=== PATIENT | female | born 1945 | race Caucasian/White ===

== ENCOUNTER → 2017-12-04 12:14 | Outpatient (CLI) | payer MEDICARE, SELFPAY ==
--- NOTE | 2017-12-04 12:31 | RAD_ITS ---
STUDY: X-RAY - CERVICAL SPINE REASON FOR EXAM: Female, 72 years old. Neck and shoulder pain TECHNIQUE: 5 view(s) of the cervical spine were obtained. COMPARISON: None FINDINGS: There is normal alignment and curvature of the cervical spine with disc space narrowing at C3-C4, C4-C5, C5-C6 and C6-C7. There are no acute fractures. The intervertebral foramina are patent bilaterally except for some narrowing at the left C5-C6 level RAD/Cerv Spine 4 or 5 Views IMPRESSION: Multilevel intervertebral osteochondrosis with uncinate spurs narrowing the left intervertebral foramen at C5-C6 Electronically Signed: Cheng Akins, at 3:34 EDT Tel , Service support ,
--- NOTE | 2017-12-04 12:37 | RAD_ITS ---
STUDY: X-RAY CHEST REASON FOR EXAM: Female, 72 years old. Asthma TECHNIQUE: Frontal and lateral views of the chest COMPARISON: 07/03/2016 FINDINGS: The lungs are clear. There are no pleural effusions. There is no pneumothorax. The heart is normal in size. The visualized osseous structures are within normal limits. RAD/Chest PA and Lateral IMPRESSION: No acute thoracic pathology. Electronically Signed: Santiago Escobar, at 22:36 EDT Tel , Service support ,
== END ==
PROVIDERS: Family Provider Internal Medicine; PCP Internal Medicine; Visit Provider Internal Medicine
DX: M42.12 Adult osteochondrosis of spine, cervical region (principal); J45.40 Moderate persistent asthma, uncomplicated
CPT/HCPCS: 71046; 72050

== ENCOUNTER → 2017-12-10 07:00 | Outpatient (CLI) | payer MEDICARE, SELFPAY ==
--- NOTE | 2017-12-10 07:02 | BI_ITS ---
MAMMOGRAPHY - BILATERAL SCREENING REASON FOR EXAM: Female, 72 years old. Routine annual screening examination. PERTINENT HISTORY: Sister with breast cancer. Aunt with breast cancer. TECHNIQUE: Digital bilateral breast leida (3D mammographic acquisition) in the CC and MLO projections. 2-D mediolateral oblique (MLO) and craniocaudad (CC) views of both breasts were obtained. CAD: Full Field Digital Mammography with Computer Added Detection was performed. COMPARISON: Comparison is made with prior study dated August 01, 2016. FINDINGS: Breast Composition: There are scattered areas of fibroglandular density. There are no dominant masses or suspicious calcifications. Stable appearance of the benign appearing bilateral axillary lymph nodes. No other significant abnormalities are identified. There has been no significant change since the prior study. BI/SCREENING MAMM (CAD), BILAT IMPRESSION: Stable bilateral screening mammogram. Yearly follow-up mammogram recommended. (A) ASSESSMENT CATEGORY: BIRADS Category 2: Benign. A letter regarding these results will be sent to the patient by the facility within 30 days. Approximately 10% of breast cancers are not detected by mammography. A normal mammogram should not delay biopsy of a clinically suspicious abnormality. [id number] Electronically Signed: Ryan Correia MD at 9:20 EDT Tel [phone], Service support ,
== END ==
PROVIDERS: Family Provider Internal Medicine; PCP Internal Medicine; Visit Provider Internal Medicine
DX: Z12.31 Encounter for screening mammogram for malignant neoplasm of breast (principal)
CPT/HCPCS: 77063; 77067

== ENCOUNTER → 2018-02-06 09:09 | Outpatient (CLI) | payer MEDICARE, SELFPAY | PROVIDERS: Family Provider Internal Medicine; PCP Internal Medicine; Visit Provider Internal Medicine | DX: I49.3 Ventricular premature depolarization (principal) | CPT/HCPCS: 93225; 93226 ==

== ENCOUNTER → 2018-08-05 10:05 | Outpatient (CLI) | payer MEDICARE, SELFPAY ==
--- NOTE | 2018-08-05 10:11 | BD_ITS ---
STUDY: DUAL ENERGY X-RAY ABSORPTIOMETRY / DXA REASON FOR EXAM: Female, 72 years old. Early menopause. Loss of height. TECHNIQUE: Bone Mineral Density (BMD) measurements of lumbar spine and bilateral hips were obtained. COMPARISON: Comparison is made with prior study dated August 01, 2016. FINDINGS: Lumbar Spine (L1-L4): g/cm2 (1.010) / T-score (-1.3) / Z-score (0.4) Findings are suggestive of osteopenia with a low fracture risk. Left Femur Total: g/cm2 (0.881) / T-score (-1.0) / Z-score (0.7) Left Femoral Neck: g/cm2 (0.735) / T-score (-2.2) / Z-score (-0.3) Right Femur Total: g/cm2 (0.881) / T-score (-1.0) / Z-score (0.6) Right Femoral Neck: g/cm2 (0.858) / T-score (-1.3) / Z-score (0.6) The T-Scores on the most recent prior examination were: Lumbar Spine (L1-L4): There has been worsening of bone density since the previous examination. Left Femur Total: which represents a worsening of 4.9%. Right Femur Total: which represents a worsening of 6%. BD/Dexa Bone Density Study IMPRESSION: The patient is considered osteopenic as outlined below according to World Wood Organization (WHO) criteria with a moderate fracture risk. There has been worsening of bone density since the previous examination. Reference Information: The T-score is the number of standard deviations above or below the standard which is normal for young adults at their peak bone mineral density. The World Health Organization (WHO) interprets the T-scores as follows: Above -1 Normal bone density Between -1 and -2.5 Osteopenia Equal to / or below -2.5 Osteoporosis As a practical clinical guideline, osteopenia may be graded as follows: Mild -1 through -1.5 Moderate -1.6 through -2.0 Severe -2.1 through -2.4 The Z-score is the number of standard deviations above or below age-matched controls. A Z-score of less than -1.5 would be considered abnormal. References: 1. NIH Osteoporosis and Related Bone Diseases http://www.osteo.org 2. International Society for Clinical Densitometry http://www.iscd.org 3. National Osteoporosis Foundation http://www.nof.org Electronically Signed: Ryan Correia, at 10:22 EST , Service support ,
== END ==
PROVIDERS: Family Provider Internal Medicine; PCP Internal Medicine; Referring Provider Internal Medicine; Visit Provider Internal Medicine
DX: Z78.0 Asymptomatic menopausal state (principal)
CPT/HCPCS: 77080

== ENCOUNTER → 2018-09-12 05:59 | Outpatient (CLI) | payer MEDICARE, SELFPAY ==
--- NOTE | 2018-09-12 06:07 | ECHOCS_ITS ---
Reason For Study: Precordial Pain Procedure This was a 2D Doppler, Color Flow transthoracic echocardiogram. Exam performed in department. Left Ventricle Normal LV size. Sigmoid septum. Left ventricular systolic function is normal. The estimated ejection fraction is 65 %. Stage 1 diastolic dysfunction. No regional wall motion abnormalities noted. Right Ventricle Normal RV size. Normal systolic function. Atria The left atrium is mildly enlarged. Normal right atrium. Mitral Valve There is mild mitral annular calcification. Tricuspid Valve Normal tricuspid valve. Mild (1+) tricuspid valve insufficiency. Pulmonary artery systolic pressure is 27 mmHg. Aortic Valve Normal aortic valve. Pulmonic Valve Normal pulmonic valve. Great Vessels Normal aortic root. The pulmonary artery is normal size. Normal inferior vena cava. Pericardium/Pleural No pericardial effusion. Medication 22 gauge I.V. with prn adaptor inserted into right arm. Diluted definity 2ml given slow IV push to enhance endocardial definition. MMode/2D Measurements & Calculations LVIDd: 3.7 cm IVSd: 1.3 cm Ao root diam: 3.8 cm LVIDs: 2.5 cm LVPWd: 0.83 cm FS: 33.6 % LAV(MOD-bp): 73.1 ml LVAd ap4: 33.1 cm2 SV(MOD-sp4): 69.9 ml LAV(MOD-bp) Indexed: 38.6 ml/m2 EDV(MOD-sp4): 120.5 ml LAV(MOD-sp2): 83.2 ml EDV(sp4-el): 127.4 ml LAV(MOD-sp4): 62.9 ml LVAs ap4: 19.7 cm2 ESV(MOD-sp4): 50.6 ml ESV(sp4-el): 51.8 ml EF(MOD-sp4): 58.0 % EF(sp4-el): 59.4 % SV(sp4-el): 75.6 ml LA A4 area: 22.0 cm2 RA A4 area: 15.1 cm2 Time Measurements MV dec time: 0.41 sec Doppler Measurements & Calculations MV E max virgilio: 98.6 cm/sec Lat Peak E' Virgilio: 5.0 cm/sec Med Peak E' Virgilio: 5.4 cm/sec MV A max virgilio: 157.3 cm/sec E/E' lat: 19.6 E/E' med: 18.2 MV E/A: 0.63 MV V2 max: 190.7 cm/sec MV P1/2t max virgilio: 119.4 cm/sec Ao V2 max: 111.3 cm/sec MV max P.5 mmHg MV P1/2t: 123.0 msec Ao max P.0 mmHg MV V2 mean: 93.8 cm/sec MV mean P.2 mmHg MV dec slope: 284.4 cm/sec2 MV V2 VTI: 46.2 cm MVA(P1/2t): 1.8 cm2 LV V1 max: 101.1 cm/sec PA V2 max: 136.8 cm/sec TR max virgilio: 243.6 cm/sec LV V1 max P.1 mmHg TR max P.7 mmHg Interpretation Summary Normal LV size. Left ventricular systolic function is normal. The estimated ejection fraction is 65 %. Stage 1 diastolic dysfunction. Contrast injection was performed. Compared to prior study, there is no significant change. Ordering Physician: Na Valente Referring Physician: Na Valente Performed By: Nelson Burton RCS
--- NOTE | 2018-09-12 08:50 | STRESSREP ---
Stress Test Report Pharmacologic myocardial perfusion stress test. 72-year-old lady with a history of chest pain. Stress protocol: Resting EKG demonstrates normal sinus rhythm with premature ventricular complex. Blood pressure 132/86 mmHg. 0.4 mg of regadenoson was infused per usual protocol followed by rapid intravenous saline flush injection continuous EKG monitoring was performed. Patient maintained sinus rhythm throughout the recording with frequent premature ventricular complexes noted. At rest there were no ST or T wave changes noted suggest abnormal flow reserve at peak infusion nonspecific ST-T wave changes were noted with no meet the criteria for ischemia. The resting blood pressure 132/86 final blood pressure 120/72 mmHg. Myocardial perfusion protocol. 14.7 mCi of technetium 99m sestamibi was injected at rest. 0.4 mg of regadenoson was infused per usual protocol peak infusion 44.9 mCi of technetium 99m sestamibi was injected stress images were obtained stress and rest images were reconstructed and compared in the short axis vertical long horizontal long axis. Gated images were also obtained per Perfusion SPECT analysis: Review of the stress images demonstrate normal uptake of tracer noted in all areas of the myocardium. The resting images similarly demonstrate normal uptake of tracer noted in all areas of the myocardium. No areas of reversibility are noted suggest ischemia no previous infarct is noted. Gated SPECT analysis: The gated ejection fraction is noted to be 79%. Conclusion: Normal pharmacologic myocardial perfusion stress test. preserved ejection fraction.
== END ==
PROVIDERS: Family Provider Internal Medicine; PCP Internal Medicine; Referring Provider Internal Medicine; Visit Provider Internal Medicine
DX: R07.2 Precordial pain (principal)
CPT/HCPCS: 78452; 93017; 93306; A9500; Q9957; A4216; C8929; J2785

== ENCOUNTER → 2019-02-02 14:48 | Outpatient (CLI) | payer MEDICARE, SELFPAY ==
--- NOTE | 2019-02-02 14:51 | CT_ITS ---
STUDY: CT ABDOMEN AND PELVIS WITHOUT CONTRAST REASON FOR EXAM: Female, 73 years old. Right flank pain. RADIATION DOSAGE (If Supplied By Facility): CTDIvol = ( 22.89 ) mGy, DLP = ( 1132.40 ) mGycm TECHNIQUE: Transaxial images were obtained from the dome of the diaphragm to the symphysis pubis without oral contrast, and without intravenous contrast. Sagittal and coronal images were reconstructed. Individualized dose optimization techniques were used for this CT. COMPARISON: None. FINDINGS: Multiple pulmonary nodules are seen in the lung bases more prominent on the right side. The largest measures 1.9 cm x 1.9 cm. This is in the posterior segment of the right lower lobe. Coronary artery calcifications. Normal liver. There are surgical clips in the gallbladder fossa consistent with a prior cholecystectomy. Normal spleen. Normal pancreas. Normal bilateral adrenal glands. Punctate calcification in the lower pole calyx of the right kidney. Normal left kidney. There is evidence of a 3.7 cm x 4.1 cm fundus tail directly compared along the posterior fundal portion of the stomach. Normal small intestine. Diffuse colonic diverticulosis. The appendix is visualized and appears normal. There is diffuse atherosclerotic calcification of the abdominal aorta, without a demonstrated aneurysm. Normal inferior vena cava. There is borderline retroperitoneal lymphadenopathy with enlarged nodes no greater than 10mm in the short axis diameter. Normal urinary bladder. There is absence of the uterus consistent with a prior hysterectomy. Small bilateral inguinal lymph nodes. There are diffuse degenerative changes of the visualized lumbar spine. Mild degree of dextroscoliosis. CT/Abdomen/Pelvis without Cont IMPRESSION: Multiple pulmonary nodules seen at the lung bases. Punctate calcification in the lower pole calyx of the right kidney. Diffuse colonic diverticulosis. Electronically Signed: Ryan Correia, at 15:44 EDT , Service support ,
[2019-02-02 15:36] LABS: Absolute Neutrophil Count 7.2 X10^3/uL (2.0-7.7); Basophil# 0.05 X10^3/uL; Basophil% 0.5 % (0-1); Eosinophil# 0.11 X10^3/uL; Eosinophils% 1.2 % (0-5); Hematocrit 44.9 % (37-47); Hemoglobin 14.8 g/dL (12.0-15.0); Lymphocyte % 14.8 % (19-41); Mean Corpuscular Hgb 31.6 pg (27.0-32.0); Mean Corpuscular Volume 95.7 fL (81-99); Mean Platelet Vol. 11.4 fl (6.2-12.0); Monocyte# 0.62 X10^3/uL; Monocyte% 6.6 % (0-10); NRBC Flagged by Analyzer 0 % (0-5); Neutrophil # 7.19 X10^3/uL (2.7-7.7); Neutrophil % 76.2 % (47-70); Platelet Count 229 K/mm3 (150-450); RBC Distribution Width CV 13.7 % (11.6-14.6); RBC Distribution Width SD 48.7 fl (35.1-43.9); Red Blood Count 4.69 M/mm3 (4.2-5.4); White Blood Count 9.4 K/mm3 (4.4-11.0)
[2019-02-02 15:46] LABS: ALB/GLOB Ratio 1.2 RATIO (0.9-2.4); AST(SGOT) 15 U/L (15-37); Alanine Aminotransfer ALT/SGPT 33 U/L (13-56); Albumin, Serum 3.3 g/dL (3.2-5.0); Alkaline Phosphatase 88 U/L (45-117); Anion Gap 7 (5-15); BUN 21 mg/dL (7-18); BUN/Creat Ratio 28.3 RATIO (10-20); Calcium,Total 8.7 mg/dL (8.5-10.1); Chloride 111 mmol/L (98-107); Creatinine, Serum 0.74 mg/dL (0.55-1.02); EST Glomerular Filtration Rate 81 mL/min (>60); Erythrocyte Sedimentation Rate 24 mm/hr (0-30); Est Glom Filt Rate - Afr Amer 98 mL/min (>60); Globulin 2.8 g/dL (2.2-4.2); Glucose 153 mg/dL (74-106); Potassium 4.1 mmol/L (3.5-5.1); Protein, Total 6.1 g/dL (6.4-8.2); Sodium Level 144 mmol/L (136-145)
== END ==
PROVIDERS: Family Provider Internal Medicine; PCP Internal Medicine; Referring Provider Internal Medicine; Visit Provider Internal Medicine
DX: K57.30 Diverticulosis of large intestine without perforation or abscess without bleeding (principal); R10.9 Unspecified abdominal pain; M54.9 Dorsalgia, unspecified
CPT/HCPCS: 74176; 80053; 85025; 85652; 86140

== ENCOUNTER → 2019-02-12 14:47 | Outpatient (CLI) | payer MEDICARE, SELFPAY ==
--- NOTE | 2019-02-12 14:52 | CT_ITS ---
STUDY: CT CHEST WITH CONTRAST REASON FOR EXAM: Female, 73 years old. Nodules RADIATION DOSAGE (If Supplied By Facility): CTDIvol = ( 14.48 ) mGy, DLP = ( 641.03 ) mGycm TECHNIQUE: Transaxial imaging was performed following intravenous administration of 100 IV Isovue 300. Multiplanar coronal and sagittal images were reformatted. Individualized dose optimization techniques were used for this CT. COMPARISON: 12/04/2017 FINDINGS: Thyroid gland is mildly enlarged with low-density nodule suggesting goiter Lung windows show multiple scattered noncalcified nodules in both lung marr. There are at least 10-12 nodules, more prominent in the right lung than the left largest measures 1.9 cm and the right lung base. These are concerning for metastasis. No organizing infiltrate or effusion. No suspicious pleural thickening. Normal heart and pericardium. There are calcified coronary vessels. There are scattered subcentimeter axillary mediastinal lymph nodes. Normal hilar regions. Normal enhanced pulmonary arteries. Normal aorta arch and descending thoracic aorta. There are multi-level degenerative changes of the thoracic spine. There is no demonstrated abnormality of the visualized upper abdomen. CT/Chest WITH Contrast IMPRESSION: Multiple noncalcified nodules in both lung marr, largest measures 1.9 cm and the right lung base. The should be considered metastatic until proven otherwise. No superimposed infiltrate or effusion Subcentimeter axillary mediastinal lymph nodes Degenerative bony changes Borderline enlarged thyroid gland with low-density nodules suggests a goiter Electronically Signed: Feroz Rosales MD at 15:33 EDT , Service support ,
--- NOTE | 2019-02-12 15:03 | RAD_ITS ---
STUDY: X-RAY - THORACIC SPINE REASON FOR EXAM: Female, 73 years old. Mid back pain TECHNIQUE: 3 view(s) of the thoracic spine were obtained. COMPARISON: None. FINDINGS: There is an increase in the normal thoracic kyphosis. There is no substantial scoliosis. There is demineralization of the thoracic spine with endplate spondylosis. There is multilevel disc space narrowing of the thoracic spine. The soft tissue structures are unremarkable. RAD/Thoracic Spine 3 Views IMPRESSION: Multilevel degenerative changes Electronically Signed: Feroz Rosales MD at 16:11 EDT , Service support ,
--- NOTE | 2019-02-12 15:05 | RAD_ITS ---
STUDY: X-RAY - PELVIS AND BILATERAL HIPS REASON FOR EXAM: Female, 73 years old. Pain TECHNIQUE: AP view of the pelvis.? 2 views of the right hip, and 2 views of the left hip were obtained. COMPARISON: 2014 FINDINGS: There is a non-specific bowel gas pattern. Normal visualized soft tissue structures. There is diffuse demineralization of the osseous structures. There is narrowing with cortical sclerosis and osteophyte formation of the sacroiliac joint consistent with degenerative osteoarthritic changes. Normal bilateral superior and inferior pubic rami. Normal pubic symphysis. Normal bilateral ischial tuberosities. Normal visualized right femoral head. Normal right acetabulum. There is moderate articular joint space narrowing of the right hip. Normal visualized left femoral head. Normal left acetabulum. There is moderate articular joint space narrowing of the left hip. Retained stool noted in the colon. Contrast noted in the renal calyces and bladder RAD/Hips B/L min 2 views w/ Pelvis IMPRESSION: Degenerative arthrosis Electronically Signed: Feroz Rosales MD at 16:11 EDT , Service support ,
== END ==
PROVIDERS: Family Provider Internal Medicine; PCP Internal Medicine; Referring Provider Internal Medicine; Visit Provider Internal Medicine
DX: R91.8 Other nonspecific abnormal finding of lung field (principal); R10.2 Pelvic and perineal pain; M25.559 Pain in unspecified hip; R10.9 Unspecified abdominal pain; M54.9 Dorsalgia, unspecified
CPT/HCPCS: 71260; 72072; 73521; Q9967

== ENCOUNTER → 2019-02-25 12:22 | Outpatient (CLI) | payer MEDICARE, SELFPAY ==
--- NOTE | 2019-02-25 12:26 | BI_ITS ---
MAMMOGRAPHY - BILATERAL SCREENING REASON FOR EXAM: Female, 73 years old. Routine annual screening examination. PERTINENT HISTORY: Sister with breast cancer. Aunt with breast cancer. TECHNIQUE: Digital bilateral breast avel (3D mammographic acquisition) in the CC and MLO projections. 2-D mediolateral oblique (MLO) and craniocaudad (CC) views of both breasts were obtained. CAD: Full Field Digital Mammography with Computer Added Detection was performed. COMPARISON: Comparison is made with prior study dated December 10, 2017 and August 01, 2016. FINDINGS: Breast Composition: There are scattered areas of fibroglandular density. There are no dominant masses or suspicious calcifications. Stable benign appearing axillary lymph nodes. No other significant abnormalities are identified. There has been no significant change since the prior study. BI/SCREEN MAMM (CAD) W/AVEL BILAT IMPRESSION: Stable bilateral screening mammogram. Yearly follow-up mammogram recommended. (A) ASSESSMENT CATEGORY: BIRADS Category 2: Benign. A letter regarding these results will be sent to the patient by the facility within 30 days. Approximately 10% of breast cancers are not detected by mammography. A normal mammogram should not delay biopsy of a clinically suspicious abnormality. [id number] Electronically Signed: Ryan Correia, at 14:01 EDT , Service support ,
--- NOTE | 2019-02-25 12:26 | US_ITS ---
STUDY: THYROID ULTRASOUND REASON FOR EXAM: Female, 73 years old. Nodule TECHNIQUE: Ultrasound evaluation of the thyroid was performed with real-time and static mercedes-scale imaging. COMPARISON: None. FINDINGS: RIGHT LOBE: The right lobe of the thyroid gland measures 4.1 x 2.1 x 1.8 cm. There is a heterogeneous echotexture. There are 3 separate solid nodules measuring between 0.7 and 1.3 cm. LEFT LOBE: The left lobe of the thyroid gland measures 3.8 x 2.1 x 1.2 cm. There is a heterogeneous echotexture. There are 3 separate solid nodules measuring between 0.7 and 1.4 cm. ISTHMUS: The isthmus measures 6 mm. The regional lymph nodes are normal. US/Thyroid IMPRESSION: Normal size heterogeneous thyroid gland with multiple solid bilateral nodules. There are no previous studies available for comparison. Further evaluation with thyroid uptake study recommended to assess uptake characteristics. If any nodule should demonstrate suspicious characteristics, biopsy would be recommended. If not, six-month follow-up recommended to ensure stability Electronically Signed: Feroz Rosales MD at 15:32 EDT , Service support ,
== END ==
PROVIDERS: Family Provider Internal Medicine; PCP Internal Medicine; Referring Provider Internal Medicine; Visit Provider Internal Medicine
DX: E04.1 Nontoxic single thyroid nodule (principal); Z12.31 Encounter for screening mammogram for malignant neoplasm of breast
CPT/HCPCS: 76536; 77063; 77067

== ENCOUNTER → 2019-03-09 07:29 | Outpatient (CLI) | payer MEDICARE, SELFPAY ==
--- NOTE | 2019-03-09 08:00 | PET_ITS ---
EXAMINATION: FDG PET/CT INDICATIONS: A 73-year-old female with history of pulmonary nodularity. COMPARISON EXAMINATION: CT of the chest report dated 02/12/19. INDEX LESION SIZE SUV INTERPRETATION Right lower posterior lung zone, right lower lobe 19.1-mm (frame 167) 1.0 Quantitative criteria for viable neoplasm are not fulfilled, sequential radiologic investigation recommended TECHNIQUE: Following the intravenous administration of 13.82 mCi of F-18 deoxyglucose via the left antecubital fossa, multiplanar image acquisitions of the neck, chest, abdomen and pelvis to level of mid thigh, obtained at one hour post radiopharmaceutical administration contemporaneously interpreted with the current CT of the neck, chest, abdomen and pelvis to level of mid thigh, dated 03/09/[address] of the chest report dated 02/12/19 reveal: SERUM GLUCOSE LEVEL: 133 mg/dl. HEIGHT: 65 inches. WEIGHT: 200 lbs. FINDINGS: 1. Subtle increased glucose concentration is observed in the right lower posterior hemithorax pulmonary parenchyma generating a calculated maximal standard uptake value of 1.0. The maximal axial diameter of the rounded, non-calcified parenchymal density in the analogous location on review of CT of the chest dated 03/09/19 is 19.1-mm. 2. Normal physiologic distribution of the radiopharmaceutical is apparent in the hepatic (3.2) and splenic parenchyma, both renal units, bladder and visualized intestinal tract. The visualized portion of the cerebral cortex demonstrate symmetric and preserved glucose metabolism. Diffuse radiopharmaceutical concentration is noted in all four quadrants of the abdomen and pelvis. Prominent glucose concentration is defined in the ascending and descending thoracic and abdominal aorta commensurate with activated leukocytes associated with atherosclerotic plaque formation. Pertinent CT findings are as follows: CHEST: There is atherosclerotic calcification defined in the thoracic aorta without evidence of dilatation-aneurysm formation. Bilateral axillary soft tissue densities with fatty hilus formation are non-glucose avid. Mediastinal soft tissue is ametabolic. There is atherosclerotic calcification defined in the thoracic aorta without evidence of dilatation-aneurysm formation. There are no parenchymal densities-nodules defined in the right-left hemithorax pulmonary parenchyma demonstrating quantitatively significant enhanced glucose metabolism. ABDOMEN AND PELVIS: The gallbladder appears surgically absent. There is atherosclerotic calcification defined in the abdominal aorta without evidence of dilatation-aneurysm formation. Pelvic arterial calcification is observed. There is borderline fatty metamorphosis-steatosis defined in the hepatic parenchyma. Colonic diverticulosis is defined without evidence of diverticulitis. Right-left inguinal soft tissue densities with fatty hilus formation are ametabolic. SKELETAL: Degenerative changes are noted in the cervical, thoracic and lumbar spine. PET/PET/CT Tumor Base -Thigh Init IMPRESSION: 1. NEGATIVE EXAMINATION. There is no definitive quantitative scintigraphic evidence of viable neoplasm. 2. Subtle increased glucose metabolism manifest in the right lower posterior lung zone-right lower lobe, does not fulfill quantitative criteria for viable neoplasm. (Artem et al, Annals of Internal Medicine, 138:724, 2003). 3. Anatomic-metabolic stability may be ensured in the mildly hypermetabolic abnormality involving the right hemithorax pulmonary parenchyma, with repeat CT of the thorax in 3-6 months. (Jesse, Seminars in Thoracic and Cardiovascular Surgery 14:292, 2002). Electronic Signature Bayron Arceo D.O. Electronically Signed: Bayron Arceo DO at 22:54 EDT Tel , Service support ,
== END ==
PROVIDERS: Family Provider Internal Medicine; PCP Internal Medicine; Referring Provider Internal Medicine; Visit Provider Internal Medicine
DX: R91.8 Other nonspecific abnormal finding of lung field (principal)
CPT/HCPCS: 78815; A9552

== ENCOUNTER → 2019-03-26 15:20 | Outpatient (CLI) | payer MEDICARE, SELFPAY ==
--- NOTE | 2019-03-26 | ASPS_PTH ---
PATIENT: SAWYER MAJANO LOC: [facility] U#:[id number] AGE/SX: 79/F ROOM: RE03/26/[address]: Dr. Cash Seay MD : 1945 BED: DIS: SPEC #: [id number] RECD: 03/26/19 15:13 STATUS: PAYAM REViridiana #: [id number] BEATRIZ: 03/26/19 00:[address]: Cash Seay DEPT: CYTOLOGY RECD BY: Gustavo Najera ENTERED: 03/27/19 08:19 SP TYPE: ASPIRATION OTHR DR: Dr. Na Valente, DO Tissues: A - Thyroid gland, NOS B - Thyroid gland, NOS Procedures: Special Stain Group II Cytology Other HEADER OPERATION: Ultrasound-guided fine needle aspiration bilateral thyroid PRE-OP DIAGNOSIS: Multinodular goiter E04.2 TISSUE SUBMITTED: A - Fine needle aspiration, right thyroid (12 slides), B - Fine needle aspiration, left thyroid (12 slides) DIAGNOSIS CYTOLOGY A. 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 Adequate for evaluation. B. Left thyroid nodule, ultrasound-guided FNA (smears): Consistent with benign colloid nodule with cystic changes and H?rthle cell features. Adequate for evaluation. SJ:pepper 03/27/19 COMMENT Correlation with clinical, radiologic findings and appropriate follow up are necessary. CYTOLOGY STUDY Slides are reviewed. CYTOLOGY GROSS A - Received are 12 smears labeled with the patient's name and designated per the requisition as right thyroid. Submitted for staining. B - Received are 12 smears labeled with the patient's name and designated per the requisition as left thyroid. Submitted for staining. / pepper 03/26/19 TC: CPT: 43393 x2
[2019-03-26 12:59] VITALS: BMI 32.3
== END ==
PROVIDERS: Family Provider Internal Medicine; PCP Internal Medicine; Referring Provider Surgery; Visit Provider Surgery
DX: E04.2 Nontoxic multinodular goiter (principal)
CPT/HCPCS: 88161; 88313

== ENCOUNTER → 2019-06-09 08:05 | Outpatient (CLI) | payer MEDICARE, SELFPAY ==
[2019-03-26 12:59] VITALS: BMI 32.3
--- NOTE | 2019-06-09 08:09 | CT_ITS ---
STUDY: CT CHEST WITHOUT CONTRAST REASON FOR EXAM: Female, 73 years old. Lung nodule follow up, no new problems. Hx diabetes and hypertension. RADIATION DOSAGE (If Supplied By Facility): CTDIvol = ( 18.81 ) mGy, DLP = ( 611.16 ) mGycm TECHNIQUE: Transaxial imaging was performed without the administration of intravenous contrast material. Multiplanar coronal and sagittal images were reformatted. Quality of the images degraded by respiratory motion. Individualized dose optimization techniques were used for this CT. COMPARISON: 02/12/[address], 03/09/2019 PET scan FINDINGS: The small pulmonary nodules on the prior study are not as well seen, however, the nodules are grossly similar. Specifically, dominant nodule in the right lower lobe measuring 1.8 cm is stable since the prior study. No new or enlarging pulmonary nodule. There is no demonstrated pleural abnormality. Normal heart and pericardium. Mitral valve calcifications are demonstrated. There are multiple small lymph nodes within the mediastinum, which are normal in size and morphology most compatible with reactive lymph hyperplasia. No dominant dalia mass. Very small subcentimeter axillary lymph nodes are stable. Normal hilar regions. Normal unenhanced pulmonary arteries. There is atherosclerosis of the thoracic aorta. There are multi-level degenerative changes of the thoracic spine. There is no demonstrated abnormality of the visualized upper abdomen. Cholecystectomy clips are identified. CT/Chest without Contrast IMPRESSION: Since 02/12/2019, stable exam. Multiple noncalcified nodules, unchanged. No new or enlarging pulmonary nodule. Electronically Signed: Atul Ambrose MD ([place]) at 14:58 EST , Service support ,
[2019-06-09 09:42] LABS: Erythrocyte Sedimentation Rate 19 mm/hr (0-30)
[2019-06-09 10:04] LABS: Rheumatoid Factor < 10.0 IU/mL (<15)
[2019-06-12 13:21] LABS: ANTINUCLEAR ANTIBODIES DIRECT Negative (Negative); Anti-dsDNA Ab 1 IU/mL (0-9)
== END ==
PROVIDERS: Family Provider Internal Medicine; PCP Internal Medicine; Referring Provider Internal Medicine Pulmonary Disease; Visit Provider Internal Medicine Pulmonary Disease
DX: R91.8 Other nonspecific abnormal finding of lung field (principal); I10 Essential (primary) hypertension; M19.90 Unspecified osteoarthritis, unspecified site
CPT/HCPCS: 36415; 71250; 85652; 86038; 86225; 86256; 86431; 87385

== ENCOUNTER → 2019-12-04 09:23 | Outpatient (CLI) | payer MEDICARE, SELFPAY ==
[2019-03-26 12:59] VITALS: BMI 32.3
--- NOTE | 2019-12-04 09:30 | RAD_ITS ---
STUDY: X-RAY - UNILATERAL RIBS ( LEFT ) WITH CHEST REASON FOR EXAM: Female, 74 years old. PAIN LEFT RIBS INFERIORLY AND LATERALLY FOR ABOUT 8 DAYS NOW. NO KNOWN INJURY. TECHNIQUE - RIBS: 6 view(s) of the ribs. TECHNIQUE - CHEST: Single PA view of the chest. COMPARISON: 12/04/2017 FINDINGS - RIBS: Normal visualized ribs without a demonstrated acute fracture. Old healed left rib fractures are noted. FINDINGS - CHEST: There are interstitial fibrotic changes of the lungs. There is no demonstrated pleural abnormality. Normal size heart. Normal mediastinum and juan manuel. Normal visualized pulmonary arteries. Normal visualized aortic arch and descending thoracic aorta. There are diffuse degenerative changes of the visualized thoracic spine. There is degenerative osteoarthritis of the bilateral shoulders. Evidence of previous right rotator cuff surgery. There is no demonstrated abnormality of the visualized soft tissue structures of the upper abdomen. RAD/Ribs Uni Min 3V w/PA Chest IMPRESSION: RIBS: No demonstrated acute fracture CHEST: Chronic interstitial changes, no superimposed acute pulmonary process Electronically Signed: Feroz Rosales MD at 10:17 EDT , Service support ,
== END ==
PROVIDERS: PCP Internal Medicine; Referring Provider Internal Medicine; Visit Provider Internal Medicine
DX: R07.9 Chest pain, unspecified (principal); R07.81 Pleurodynia
CPT/HCPCS: 71101

== ENCOUNTER → 2019-12-07 07:50 | Outpatient (CLI) | payer MEDICARE, SELFPAY ==
[2019-03-26 12:59] VITALS: BMI 32.3
--- NOTE | 2019-12-07 07:54 | CT_ITS ---
STUDY: CT CHEST WITHOUT CONTRAST REASON FOR EXAM: Female, 74 years old. LUNG NODULES bilaterally. HTN-rx controlled. No hx cancer or prev chest surgery RADIATION DOSAGE (If Supplied By Facility): CTDIvol = ( 18.44 ) mGy, DLP = ( 626.51 ) mGycm TECHNIQUE: Transaxial imaging was performed without the administration of intravenous contrast material. Multiplanar coronal and sagittal images were reformatted. Individualized dose optimization techniques were used for this CT. COMPARISON: Comparison is made with prior examination dated June 09, 2019. FINDINGS: Stable dominant 1.9 cm noncalcified nodule in the right lower lobe. Stable scattered subcentimeter nodules in the right lung as well. There is no demonstrated pleural abnormality. Coronary artery calcification. There are multiple small lymph nodes within the mediastinum, which are normal in size and morphology most compatible with reactive lymph hyperplasia. Normal hilar regions. Normal unenhanced pulmonary arteries. There is atherosclerotic calcification of the aortic arch . There are multi-level degenerative changes of the thoracic spine. There is no demonstrated abnormality of the visualized upper abdomen. CT/Chest without Contrast IMPRESSION: Stable examination with the scattered pulmonary nodules in the right hemithorax. Stable noncalcified nodules in the left lower lobe. Electronically Signed: Ryan Correia, at 14:48 EDT , Service support ,
== END ==
PROVIDERS: Family Provider Internal Medicine; PCP Internal Medicine; Referring Provider Internal Medicine Pulmonary Disease; Visit Provider Internal Medicine Pulmonary Disease
DX: R91.1 Solitary pulmonary nodule (principal)
CPT/HCPCS: 71250

== ENCOUNTER 2019-12-19 00:05 | Emergency (ER) | payer MEDICARE, SELFPAY ==
[2019-03-26 12:59] VITALS: BMI 32.3
[2019-12-19 00:06] VITALS: TEMP 37.2; BMI 37.4
[2019-12-19 00:10] VITALS: BP 178/128; PULSE 86; RESP 20; O2SAT 96
[2019-12-19 00:11] VITALS: BP 178/128; PULSE 86; RESP 20; TEMP 37.2; O2SAT 96
--- NOTE | 2019-12-19 00:13 | CT_ITS ---
HISTORY: RIGHT FLANK PAIN TECHNIQUE: Helically acquired images were obtained of the abdomen and pelvis without oral or IV contrast. A radiation dose optimization technique was used for this scan. COMPARISON: PET/CT most recently from March 09, 2019. CT scan again pelvis from February 02, 2019 FINDINGS: # of images incl. paperwork: 501 LUNG BASES: 7 mm nodule within the right lower lobe anteriorly is the same as February 02, 2019. Many pulmonary nodules are present. Also within the right lower lobe, there is a 21 mm nodule. It is smaller than February 02, 2019 where it measured 24 mm left lung nodules are present as well. It is the same size as from the March 09, 2019, where it measured 21 mm . Either mitral valve disease or circumflex coronary artery disease. I favor mitral valve disease. This is unchanged CT abdomen: Degenerative disc disease. Facet arthropathy. Sclerosis at the pubic symphysis. No lytic or blastic metastasis are perceived The gallbladder has been resected. Liver, spleen, pancreas, and adrenal glands are normal. A gastric cardia diverticulum is present just above the left adrenal gland. The aorta is diseased with atherosclerotic plaque, but without aneurysm. The kidneys are without atherosclerotic plaque within their arteries. No nephrolithiasis. Mild right hydronephrosis and right hydroureter. A 4 mm obstructing ureteric stone is present within the proximal right ureter at the level of the inferior endplate of the L3 vertebral body. The more distal right ureter remains slightly prominent throughout its course. Within the bladder aspect of the right ureterovesicular junction there is a 3 x 3 mm stone. There is no intra-or extrahepatic biliary ductal dilatation. CT pelvis: No ascites is present. The uterus is not identified, and likely has been resected.. The appendix is normal. Series 2 image 89. The bladder is mostly decompressed. Severe diverticulosis throughout almost all of the colon. A few to fluid-filled and slightly dilated loops of small bowel within the central abdomen CT/Abdomen/Pelvis without Cont IMPRESSION: 2 right ureteric stones. More proximally, at the level of the inferior endplate of the right L3 vertebral body is a 3 x 4 mm obstructing stone with right hydronephrosis and periureteric edema. Within the right ureterovesicular junction, the bladder aspect of the right ureterovesicular junction, there is a 3 x 3 mm obstructing stone Multiple pulmonary nodules consistent with metastatic disease. The largest of these is visualized within the lung bases at the right lower lobe measures 21 mm. Although this is smaller than the previous study of February 02, 2019, this is the same as the PET/CT of March 09, 2019. Individualized dose optimization techniques were used for this CT. at 0116 Reported and signed by: Rolando Gruber MD Electronically Signed: Rolando Gruber MD at 1:15 EDT Tel , Service support ,
--- NOTE | 2019-12-19 00:14 | ED.VIS.GEN ---
History of Present Illness Chief Complaint: Flank Pain Informant: Patient Onset: Today Narrative: 74-year-old female with past medical history of hypertension presents with right flank pain. States that earlier today for approximately 10 to 15 minutes she had a pain in her right back that radiated around into her right side and abdomen. States it was sharp in nature. Admitted to nausea and diaphoresis. Denies any vomiting, fever, chills. States that she has had difficulty urinating. States that this then returned approximately 45 minutes ago. States it is been persistent since that time. Denies any chest pain, shortness of breath, cough, vaginal bleeding or discharge. States that she did have a kidney stone many years ago. Past Medical History - Allergies and Home Meds Allergies/Adverse Reactions: Allergies No Known Allergies Allergy (Verified 04/01/19 15:06) Primary Care Physician: Na Valente DO [Primary Care Provider] - Past Medical History: - - Hypertension Lives: Spouse/ Significant Other Smoking Status: Never smoker Alcohol: None Drugs: None Review of Systems General: Reports: Sweats. Denies: Chills, Fever Eyes: Denies: Visual changes - bilaterally, Diplopia ENT: Denies: Rhinorrhea, Sore throat Cardiovascular: Denies: Chest pain, Palpitations Respiratory: Denies: Dyspnea, Cough, Dyspnea on exertion Gastrointestinal: Reports: Nausea. Denies: Abdominal pain, Vomiting, Diarrhea, Melena, Hematochezia Genitourinary: Denies: Dysuria, Hematuria, Frequency Musculoskeletal: Reports: Back pain. Denies: Extremity Pain Skin: Denies: Rash, Wounds Neurological: Denies: Headache, Weakness, Numbness Physical Exam Vital Signs/Narrative: Vital Signs Temp Pulse Resp BP Pulse Ox 12/19/19 00:11 98.9 F 86 20 H 178/128 H 96 12/19/19 00:10 86 20 H 178/128 H 96 12/19/19 00:06 98.9 F Inital Vital Signs reviewed: Yes General: Well nourished, Well developed, No Acute Distress Head: Normocephalic, Atraumatic Eyes: Perrl, EOMI ENT: Moist mucous membranes, No rhinorrhea Neck: Supple, Nontender Cardiovascular: Regular rate, Regular rhythm, No murmurs Respiratory: No distress, CTA bilaterally, Chest nontender Abdomen: Soft, Nondistended, Normal bowel sounds, - - Tenderness to palpation in the right flank. No rebound or guarding. Back: Nontender, Normal Inspection Extremities: Nontender, No edema Skin: Normal color, No rash Neurological: Alert, Oriented x3, Cranial nerves II-XII grossly intact, Normal Strength, Normal Sensation Psychological: Normal affect, Normal Mood Diagnostic/Tx/Re-eval Clinical Impression(s) from Imaging Studies Abdomen/Pelvis CT 12/19/19 00:13 IMPRESSION: 2 right ureteric stones. More proximally, at the level of the inferior endplate of the right L3 vertebral body is a 3 x 4 mm obstructing stone with right hydronephrosis and periureteric edema. Within the right ureterovesicular junction, the bladder aspect of the right ureterovesicular junction, there is a 3 x 3 mm obstructing stone Multiple pulmonary nodules consistent with metastatic disease. The largest of these is visualized within the lung bases at the right lower lobe measures 21 mm. Although this is smaller than the previous study of February 02, 2019, this is the same as the PET/CT of March 09, 2019. Individualized dose optimization techniques were used for this CT. at 0116 Reported and signed by: Rolando Gruber MD Electronically Signed: Rolnado Gruber MD at 1:15 EDT Tel , Service support , Laboratory Data 12/19/19 12/19/19 00:13 00:13 WBC 9.2 RBC 4.65 Hgb 14.6 Hct 45.0 MCV 96.8 MCH 31.4 MCHC 32.4 RDW Std Deviation 48.2 H RDW Coeff of Emmy 13.5 Plt Count 205 MPV 11.2 Immature Gran % (Auto) 0.700 Neut % (Auto) 64.1 Lymph % (Auto) 25.8 [place] % (Auto) 7.4 Eos % (Auto) 1.7 Baso % (Auto) 0.3 Absolute Neuts (auto) 5.9 Absolute Lymphs (auto) 2.37 Nucleated RBC % 0 Sodium 140 Potassium 4.2 Chloride 107 Carbon Dioxide 26.0 Anion Gap 7 BUN 21 H Creatinine 0.96 Estim Creat Clear Calc 43.72 Est GFR (MDRD) Af Amer 73 Est GFR (MDRD) Non-Af 60 BUN/Creatinine Ratio 21.8 H Glucose 166 H Calcium 9.4 Total Bilirubin 0.30 AST 20 ALT 37 Alkaline Phosphatase 96 Total Protein 6.9 Albumin 3.7 Globulin 3.2 Albumin/Globulin Ratio 1.2 Lipase 157 - Medical Decision Making On arrival patient is in moderate amount of pain secondary to right flank pain. Vital signs show hypertension but otherwise within normal limits. Lab work within normal limits. CT shows 2 right-sided ureteral stones. One at the UVJ and one more proximal. One is 3 mm and the other is 4 mm. Patient was given morphine, 1 L fluid bolus, and Zofran. This did resolve her symptoms. She will be given Percocet, Zofran, Flomax for home. Will be given urologic follow-up. Asked to return for new or worsening symptoms. Discharged home in stable condition. ED Disposition - Plan for ED Patient: Disposition: Home or Assisted Living Diagnosis: Ureterolithiasis, Nausea, Pulmonary nodule Instructions: ED Renal Stone w Colic, ED Nodule Solitary Pulmonary Prescriptions: Tamsulosin HCl [Flomax] 0.4 mg PO DAILY #7 cap Prescription Printed Oxycodone HCl/Acetaminophen [Percocet 5/325] 1 tab PO Q6H PRN PRN 3 Days #12 tab PRN Reason: Pain Prescription Printed Ondansetron [Zofran Odt] 4 mg PO Q8H PRN PRN #10 tab PRN Reason: Nausea Prescription Printed Referrals: Na Valente DO [Primary Care Provider] - Herbert Garcia MD [STAFF PHYSICIAN] -
[2019-12-19] MEDS: 0.9% Normal Saline 1,000 ML 1000 ML IV (00:23)
[2019-12-19] MEDS: Ondansetron 4 MG/2 ML Vial IV (00:24)
[2019-12-19] MEDS: Morphine 4 MG/ML Syringe IV (00:25)
[2019-12-19 00:35] LABS: Absolute Lymphocyte Count 2.37 X10^3/uL (0.83-4.51); Absolute Neutrophil Count 5.9 X10^3/uL (2.0-7.7); Basophil# 0.03 X10^3/uL; Basophil% 0.3 % (0-1); Eosinophil# 0.16 X10^3/uL; Eosinophils% 1.7 % (0-5); Hemoglobin 14.6 g/dL (12.0-15.0); Lymphocyte # 2.37 X10^3/ul (4.0); Lymphocyte % 25.8 % (19-41); Mean Corp Hgb Conc 32.4 g/dL (32-36); Mean Corpuscular Hgb 31.4 pg (27.0-32.0); Mean Corpuscular Volume 96.8 fL (81-99); Mean Platelet Vol. 11.2 fl (6.2-12.0); Monocyte# 0.68 X10^3/uL; Monocyte% 7.4 % (0-10); NRBC Flagged by Analyzer 0 % (0-5); Neutrophil # 5.88 X10^3/uL (2.7-7.7); Neutrophil % 64.1 % (47-70); Platelet Count 205 K/mm3 (150-450); RBC Distribution Width CV 13.5 % (11.6-14.6); RBC Distribution Width SD 48.2 fl (35.1-43.9); Red Blood Count 4.65 M/mm3 (4.2-5.4); White Blood Count 9.2 K/mm3 (4.4-11.0)
[2019-12-19 00:39] LABS: ALB/GLOB Ratio 1.2 RATIO (0.9-2.4); AST(SGOT) 20 U/L (15-37); Alanine Aminotransfer ALT/SGPT 37 U/L (13-56); Albumin, Serum 3.7 g/dL (3.2-5.0); Alkaline Phosphatase 96 U/L (45-117); Anion Gap 7 (5-15); BUN 21 mg/dL (7-18); BUN/Creat Ratio 21.8 RATIO (10-20); Calcium,Total 9.4 mg/dL (8.5-10.1); Chloride 107 mmol/L (98-107); Creatinine, Serum 0.96 mg/dL (0.55-1.02); EST Glomerular Filtration Rate 60 mL/min (>60); Est Glom Filt Rate - Afr Amer 73 mL/min (>60); Estimated Creatinine Clearance 43.72 ml/min; Globulin 3.2 g/dL (2.2-4.2); Glucose 166 mg/dL (74-106); Lipase 157 U/L (73-393); Potassium 4.2 mmol/L (3.5-5.1); Protein, Total 6.9 g/dL (6.4-8.2); Sodium Level 140 mmol/L (136-145)
[2019-12-19 01:35] LABS: Bacteria 0 SEEN /hpf (None Seen); Color, Urine Yellow (Yellow); Glucose, Dipstick Normal (Normal); Ketone-Dipstick Negative (Negative); Leukocyte Esterase-Dipstick Negative /ul (Negative); Mucous, Urine 0 SEEN /hpf (<or=2+); Nitrite-Dipstick Negative (Negative); Occult Blood-Urine 250 /ul (Negative); Protein-Dipstick 30 mg/dl (Negative); Specific Gravity, Urine 1.025 (1.002-1.030); Squamous Epithelial Cells - UA 0 SEEN /hpf (5-10); Urine Bilirubin Dipstick Negative (Negative); Urine Clarity Sl. Cloudy (Clear); Urine Urobilinogen Normal (Normal); White Blood Cells 0 SEEN /hpf (0-5)
[2019-12-19 01:36] VITALS: BP 177/92; PULSE 74; RESP 16; O2SAT 92
[2019-12-19] MEDS: HYDROmorphone 0.5 MG/0.5 ML SYRINGE IV (01:40)
[2019-12-19 01:47] LABS: Red Blood Cells-Urine 25-50 SEEN /hpf (0-5)
== END 2019-12-19 02:08 | disposition home or self-care (01) ==
PROVIDERS: Emergency Provider Emergency Medicine; PCP Internal Medicine
DX: N13.2 Hydronephrosis with renal and ureteral calculous obstruction (principal); Z87.442 Personal history of urinary calculi; R91.8 Other nonspecific abnormal finding of lung field; I10 Essential (primary) hypertension
CPT/HCPCS: 74176; 80053; 81001; 83690; 85025; 96361; 96374; 96375; 99283; J7030; A4216; J2405

== ENCOUNTER → 2019-12-23 14:34 | Outpatient (CLI) | payer MEDICARE, SELFPAY ==
[2019-12-19 00:06] VITALS: BMI 37.4
[2019-12-23 14:47] LABS: Absolute Lymphocyte Count 1.68 X10^3/uL (0.83-4.51); Absolute Neutrophil Count 6.9 X10^3/uL (2.0-7.7); Basophil# 0.03 X10^3/uL; Basophil% 0.3 % (0-1); Eosinophil# 0.16 X10^3/uL; Eosinophils% 1.7 % (0-5); Hematocrit 45.5 % (37-47); Hemoglobin 15.2 g/dL (12.0-15.0); Lymphocyte # 1.68 X10^3/ul (4.0); Lymphocyte % 17.7 % (19-41); Mean Corp Hgb Conc 33.4 g/dL (32-36); Mean Corpuscular Hgb 31.8 pg (27.0-32.0); Mean Corpuscular Volume 95.2 fL (81-99); Mean Platelet Vol. 10.9 fl (6.2-12.0); Monocyte# 0.69 X10^3/uL; Monocyte% 7.3 % (0-10); NRBC Flagged by Analyzer 0 % (0-5); Neutrophil # 6.91 X10^3/uL (2.7-7.7); Neutrophil % 72.6 % (47-70); Platelet Count 217 K/mm3 (150-450); RBC Distribution Width CV 13.5 % (11.6-14.6); RBC Distribution Width SD 47.2 fl (35.1-43.9); Red Blood Count 4.78 M/mm3 (4.2-5.4); White Blood Count 9.5 K/mm3 (4.4-11.0)
--- NOTE | 2019-12-23 14:52 | CT_ITS ---
STUDY: CT ABDOMEN AND PELVIS WITH CONTRAST REASON FOR EXAM: Female, 74 years old. Pt had noncontrast done 12/19/19 which showed kidney stones on the right.Please comment on that and hydronephrosis.Also LLQ pain today RADIATION DOSAGE (If Supplied By Facility): CTDIvol = ( 16.55 ) mGy, DLP = ( 1111.36 ) mGycm TECHNIQUE: Transaxial images were obtained from the dome of the diaphragm to the symphysis pubis without oral contrast. Oral and amp; IV Gastrografin and amp; 100mL Isovue-370 was administered. Sagittal and coronal images were reconstructed. Individualized dose optimization techniques were used for this CT. COMPARISON: Prior abdomen and pelvic CT exam of December 19, 2019 FINDINGS: Multiple noncalcified pulmonary nodules at the lung bases as before with the largest in the right lower lobe measuring approximately 2 cm not substantially changed from the prior exam. Negative for new consolidation or pleural effusion. The visualized portions of the heart are within normal limits. Normal liver. There are surgical clips in the gallbladder fossa consistent with a prior cholecystectomy. Normal spleen. Atrophy of the pancreas. Normal bilateral adrenal glands. A 4 mm stone remains in the proximal right ureter not substantially changed in position from prior exam. There is decreased hydronephrosis. There are no additional right or left renal stones. Unremarkable left kidney. Normal left kidney. Normal visualized stomach. Normal small intestine. There is diffuse thickening of a fairly long segment of the colon involving the proximal sigmoid colon and most of the descending colon with diverticulosis present. The appendix is visualized and appears normal. There is diffuse atherosclerotic calcification of the abdominal aorta, without a demonstrated aneurysm. Normal inferior vena cava. Normal retroperitoneum. There is a small calcification within the bladder that is just to the right of the midline near the ureterovesicular junction also present on the prior exam. This is approximately 2 mm. Normal abdominal wall. Degenerative changes of the lumbar spine with an osteolytic lesion at L3, probably hemangioma. CT/Abdomen/Pelvis WITH Contrast IMPRESSION: There continues to be a 4 mm stone in the proximal right ureter not substantially changed in position from prior exam. There is an additional 3 mm stone just inside the right ureterovesicular junction unchanged from prior exam. There is a reduced amount of hydronephrosis. There are no additional nonobstructing stones of the right kidney or left kidney. The new finding is a generalized thickening of a rather long segment of the colon from the proximal sigmoid colon to the splenic flexure. Diverticulosis is present. Diverticulitis and/or generalized colitis. The rather long segment of involvement suggests acute colitis. Negative for evidence of perforation or abscess formation. No additional acute bowel related findings. A normal appendix is identified. Unremarkable liver and spleen status post cholecystectomy. Mild pancreatic atrophy. Status post hysterectomy. Negative for pelvic mass or free fluid of the pelvis. Numerous pulmonary nodules not substantially changed from prior exam. Electronically Signed: Leny Byrne MD at 18:04 EDT , Service support ,
[2019-12-23 15:02] LABS: ALB/GLOB Ratio 1.1 RATIO (0.9-2.4); AST(SGOT) 28 U/L (15-37); Alanine Aminotransfer ALT/SGPT 34 U/L (13-56); Albumin, Serum 3.6 g/dL (3.2-5.0); Alkaline Phosphatase 70 U/L (45-117); Anion Gap 5 (5-15); BUN 16 mg/dL (7-18); BUN/Creat Ratio 18.9 RATIO (10-20); Calcium,Total 9.5 mg/dL (8.5-10.1); Chloride 108 mmol/L (98-107); Creatinine, Serum 0.84 mg/dL (0.55-1.02); EST Glomerular Filtration Rate 70 mL/min (>60); Est Glom Filt Rate - Afr Amer 84 mL/min (>60); Globulin 3.3 g/dL (2.2-4.2); Glucose 140 mg/dL (74-106); Protein, Total 6.9 g/dL (6.4-8.2); Sodium Level 141 mmol/L (136-145)
== END ==
PROVIDERS: PCP Internal Medicine; Referring Provider Internal Medicine; Visit Provider Internal Medicine
DX: R10.32 Left lower quadrant pain (principal)
CPT/HCPCS: 36415; 74177; 80053; 85025; Q9967

== ENCOUNTER → 2020-01-25 | Outpatient (CLI) | payer MEDICARE, SELFPAY ==
--- NOTE | 2020-01-25 13:34 | CT_ITS ---
STUDY: CT ABDOMEN AND PELVIS WITHOUT CONTRAST REASON FOR EXAM: Female, 74 years old. Stone protocol, 2 known right kidney stones. Prior cholecystectomy, hysterectomy. RADIATION DOSAGE (If Supplied By Facility): CTDIvol = ( 17.86 ) mGy, DLP = ( 896.83 ) mGycm TECHNIQUE: Transaxial images were obtained from the dome of the diaphragm to the symphysis pubis without oral contrast, and without intravenous contrast. Sagittal and coronal images were reconstructed. Individualized dose optimization techniques were used for this CT. COMPARISON: 12/23/2019 FINDINGS: Multiple noncalcified pulmonary nodules again noted. Largest measures 2 cm unchanged from the previous study. The visualized portions of the heart are within normal limits. Normal liver. There are surgical clips in the gallbladder fossa consistent with a prior cholecystectomy. Normal spleen. Normal pancreas. Normal bilateral adrenal glands. Normal right kidney. Normal left kidney. Normal visualized stomach. Normal small intestine. There are multiple colonic diverticula consistent with diverticulosis. There is nonspecific thickening of the sigmoid colon, this is likely due to previous diverticular disease but an underlying lesion cannot be excluded. The appendix is visualized and appears normal. Appendix best seen on coronal recon image 82 There is diffuse atherosclerotic calcification of the abdominal aorta, without a demonstrated aneurysm. Normal inferior vena cava. Normal retroperitoneum. Normal urinary bladder. Normal abdominal wall. There are diffuse degenerative changes of the visualized lumbar spine. CT/Abdomen/Pelvis without Cont IMPRESSION: Stable noncalcified nodules in both lung bases, largest again measures approximately 2 cm. No obstructive uropathy, no demonstrated renal stone Colonic diverticulosis with stable nonspecific thickening of the sigmoid, and underlying lesion cannot be excluded Degenerative bony changes Normal appendix visualized Electronically Signed: Feroz Rosales MD at 11:13 EDT , Service support ,
== END | disposition home or self-care (01) ==
LOC: CT 13:33
PROVIDERS: PCP Internal Medicine; Referring Provider Nurse Practitioner Adult Health; Visit Provider Nurse Practitioner Adult Health
DX: N20.0 Calculus of kidney (principal)
CPT/HCPCS: 74176

== ENCOUNTER → 2020-01-28 12:34 | Outpatient (CLI) | payer MEDICARE, SELFPAY ==
--- NOTE | 2020-01-28 12:38 | EKG12_ITS ---
Test Reason : PREOP Blood Pressure : / mmHG Vent. Rate : 062 BPM Atrial Rate : 062 BPM P-R Int : 162 ms QRS Dur : 132 ms QT Int : 496 ms P-R-T Axes : -06 037 055 degrees QTc Int : 503 ms Normal sinus rhythm Right bundle branch block Abnormal ECG Confirmed by SVITLANA JAMES, SUSANNE ([id number]), assignment desk editor SARI FLOR ([id number]) on 01/28/2020 1:03:17 PM Referred By: Herbert Garcia Confirmed By:VERONICA SHANE MD
== END ==
PROVIDERS: PCP Internal Medicine; Referring Provider Urology; Visit Provider Urology
DX: I10 Essential (primary) hypertension (principal)
CPT/HCPCS: 93005

== ENCOUNTER → 2020-01-29 | Outpatient (CLI) | payer MEDICARE, SELFPAY ==
--- NOTE | 2020-01-29 13:15 | CALC_PTH ---
PATIENT: SAWYER MAJANO LOC: [facility] U#:[id number] AGE/SX: 74/F ROOM: RE01/29/[address]: Dr. Herbert Garcia MD : 1945 BED: DIS: 01/29/2020 SPEC #: [id number] RECD: 01/29/20 15:05 STATUS: PAYAM REViridiana #: [id number] BEATRIZ: 01/29/20 13:[address]: Herbert Garcia DEPT: SURGICAL PATHOLOGY RECD BY: Adam Chicas ENTERED: 02/01/20 07:45 SP TYPE: Calculi OTHR DR: Dr. Na Valente, [facility] Tissues: CALCULI Procedures: Surgery Specimen Level I HEADER OPERATION: Right ureteroscopy, laser stone, right ureteral stent PRE-OP DIAGNOSIS: Calculus of ureter and bladder TISSUE SUBMITTED: Stone for analysis GROSS DIAGNOSIS A fragment of stone, clinically ureter and bladder stone, submitted entirely for analysis. SJ:pepper 02/01/20 COMMENT The calculus is submitted in its entirety for chemical stone analysis. The results from this study will be reported separately. GROSS DESCRIPTION Received in normal saline is one container labeled with the patient's name and not further designated. The specimen consists of a minute fragment of varela-brown stone measuring 0.2 x 0.1 x 0.1 cm. The entire specimen is submitted for stone analysis. / NIDIA:pepper 02/01/20 CPT: 19460
== END | disposition home or self-care (01) ==
LOC: LABSPEC 15:17
PROVIDERS: PCP Internal Medicine; Referring Provider Urology; Visit Provider Urology
DX: N21.0 Calculus in bladder (principal); N20.1 Calculus of ureter
CPT/HCPCS: 88300

== ENCOUNTER → 2020-04-08 12:03 | Outpatient (CLI) | payer MEDICARE, SELFPAY ==
--- NOTE | 2020-04-08 12:18 | US_ITS ---
STUDY: THYROID ULTRASOUND REASON FOR EXAM: Female, 74 years old. nodules TECHNIQUE: Ultrasound evaluation of the thyroid was performed with real-time and static mercedes-scale imaging. COMPARISON: 02/25/2019 FINDINGS: RIGHT LOBE: The right lobe of the thyroid gland measures 4.4 x 1.9 x 2.1 cm. There is a heterogeneous echotexture. Nodule 1: Enlarging solid nodule from 10 x 11 x 13 mm to 13 x 13 x 15 mm which is solid isoechoic wider than tall ill-defined marginated nodule with no echogenic foci (TR 3) and follow-up ultrasound is recommended in one year to document stability. Nodule 2: No change in the 10 x 10 x 9 mm solid hypoechoic wider than tall ill-defined marginated nodule with no echogenic foci (TR 4) (inferiorly and follow-up ultrasound is recommended in one year. LEFT LOBE: The left lobe of the thyroid gland measures 3.6 x 2.0 x 1.5 cm. There is a heterogeneous echotexture. Nodule 3: No change in the 8 x 7 x 8 mm cystic anechoic wider than tall well-defined marginated nodule with no echogenic foci (TR 1) in the superior left lobe consistent with a colloid cyst. Nodule 4: Enlarging solid nodule from 14 x 13 x 13 mm to 16 x 13 x 15 mm which is solid isoechoic wider than tall well-defined margins and no echogenic foci (TR 3 (and follow-up ultrasound is recommended in one year to document stability. ISTHMUS: The isthmus measures 3 mm thick. . The regional lymph nodes are normal. US/Thyroid IMPRESSION: Multinodular thyroid gland and follow-up ultrasound is recommended in one year. Electronically Signed: Bayron Myrick MD at 13:29 EDT Tel , Service support ,
--- NOTE | 2020-04-08 12:18 | BI_ITS ---
MAMMOGRAPHY - BILATERAL SCREENING REASON FOR EXAM: Female, 74 years old. Routine annual screening examination. PERTINENT HISTORY: Sister with breast cancer. Aunt with breast cancer. TECHNIQUE: Digital bilateral breast avel (3D mammographic acquisition) in the CC and MLO projections. 2-D mediolateral oblique (MLO) and craniocaudad (CC) views of both breasts were obtained. CAD: Full Field Digital Mammography with Computer Added Detection was performed. COMPARISON: Comparison is made with prior study dated 02/25/2019 and 12/10/2017. FINDINGS: Breast Composition: There are scattered areas of fibroglandular density. There are no dominant masses or suspicious calcifications. Stable benign appearing bilateral axillary nodes. No other significant abnormalities are identified. There has been no significant change since the prior study. BI/SCREEN MAMM (CAD) W/AVEL BILAT IMPRESSION: Stable bilateral screening mammogram. Yearly follow-up mammogram recommended. (A) ASSESSMENT CATEGORY: BIRADS Category 2: Benign. A letter regarding these results will be sent to the patient by the facility within 30 days. Approximately 10% of breast cancers are not detected by mammography. A normal mammogram should not delay biopsy of a clinically suspicious abnormality. [id number] Electronically Signed: Ryan Correia, at 13:56 EDT , Service support ,
== END ==
PROVIDERS: PCP Internal Medicine; Referring Provider Internal Medicine; Visit Provider Internal Medicine
DX: Z12.31 Encounter for screening mammogram for malignant neoplasm of breast (principal); Z80.3 Family history of malignant neoplasm of breast; E04.1 Nontoxic single thyroid nodule
CPT/HCPCS: 76536; 77063; 77067

== ENCOUNTER → 2020-12-06 13:40 | Outpatient (CLI) | payer MEDICARE, SELFPAY ==
--- NOTE | 2020-12-06 13:55 | CT_ITS ---
STUDY: CT CHEST WITHOUT CONTRAST REASON FOR EXAM: Female, 75 years old. LUNG NODULES RADIATION DOSAGE (If Supplied By Facility): CTDIvol = ( 17.72 ) mGy, DLP = ( 526.96 ) mGycm TECHNIQUE: Transaxial imaging was performed without the administration of intravenous contrast material. Multiplanar coronal and sagittal images were reformatted. Individualized dose optimization techniques were used for this CT. COMPARISON: Comparison is made with prior examination dated 12/07/2019. FINDINGS: Stable small benign-appearing bilateral axillary lymph nodes. Stable dominant 1.9 cm noncalcified nodule in the right lower lobe. Stable bilateral pulmonary nodules in the lower lobes. There has been essentially no change. Mild degree of the linear scarring at the lung bases. There is no demonstrated pleural abnormality. There are calcifications of the coronary arteries. Calcification of the mitral valve annulus. There are multiple small lymph nodes within the mediastinum, which are normal in size and morphology most compatible with reactive lymph hyperplasia. Normal hilar regions. Normal unenhanced pulmonary arteries. There is atherosclerotic calcification of the aortic arch . There are multi-level degenerative changes of the thoracic spine. There is no demonstrated abnormality of the visualized upper abdomen. CT/Chest without Contrast IMPRESSION: Stable bilateral pulmonary nodular densities in the lower lobes of both lungs more prominent on the right side. Electronically Signed: Ryan Correia MD at 14:59 EDT , Service support ,
== END ==
PROVIDERS: PCP Internal Medicine; Referring Provider Internal Medicine Pulmonary Disease; Visit Provider Internal Medicine Pulmonary Disease
DX: R91.8 Other nonspecific abnormal finding of lung field (principal)
CPT/HCPCS: 71250

== ENCOUNTER → 2021-01-26 12:28 | Outpatient (CLI) | payer MEDICARE, SELFPAY | PROVIDERS: PCP Internal Medicine; Referring Provider Internal Medicine; Visit Provider Internal Medicine | DX: I49.3 Ventricular premature depolarization (principal) | CPT/HCPCS: 93225; 93226 ==

== ENCOUNTER → 2021-05-24 15:47 | Outpatient (CLI) | payer MEDICARE, SELFPAY ==
--- NOTE | 2021-05-24 15:50 | CT_ITS ---
STUDY: CT BRAIN WITHOUT CONTRAST REASON FOR EXAM: Female, 75 years old. SLURRED SPEECH/CASE/DIZZINESS/FALL Individualized dose optimization techniques were used for this CT. TECHNIQUE: Transaxial CT imaging of the brain was performed without administration of intravenous contrast material. COMPARISON: None FINDINGS: There are calcifications noted in the distal vertebral arteries. There are calcifications noted in the cavernous carotid arteries. This is consistent for atherosclerotic disease. Normal calvarium. Normal soft tissues. There is mild cerebral atrophy with widening of the extra-axial spaces and ventricular dilatation. There are areas of decreased attenuation within the white matter tracts of the supratentorial brain, consistent with microvascular disease changes. Normal basal ganglia and thalami. Normal brainstem. There is mild cerebellar atrophy. There is no intracranial hemorrhage. There are no findings of an acute ischemic infarction. Normal visualized paranasal sinuses. ASPECTS Score for Acute Strokes: 03/19 CT/Brain/Head without Contrast IMPRESSION: There are no acute findings. Chronic involutional changes of the brain. Electronically Signed: Leonard Lomax MD at 16:12 EST , Service support ,
== END ==
PROVIDERS: PCP Internal Medicine; Referring Provider Internal Medicine; Visit Provider Internal Medicine
DX: R47.81 Slurred speech (principal); R51.9 Headache, unspecified; R42 Dizziness and giddiness
CPT/HCPCS: 70450

== ENCOUNTER → 2021-05-30 16:15 | Outpatient (CLI) | payer MEDICARE, SELFPAY ==
--- NOTE | 2021-05-30 16:36 | MRI_ITS ---
STUDY: MRI ORBITS WITH AND WITHOUT CONTRAST REASON FOR EXAM: Female, 75 years old. EXOPHTHALMIA- RIGHT EYE; NO EYE PAIN; PT ALSO C/O DIZZINESS SINCE RECENT FALL ON ICE TECHNIQUE: Standardized fat and water weighted pulse sequences were obtained in all 3 orthogonal planes, pre-and post contrast administration. IV 18ml Dotarem was administered for the contrast portion of the examination. COMPARISON: CT of the head dated 05/24/2021 FINDINGS: Normal bilateral globes. Normal bilateral optic nerve sheath complexes and optic nerves. Normal bilateral intraconal and extraconal spaces. Normal bilateral extraocular muscles. Normal optic chiasm and post-chiasmatic tracts. Normal sella turcica, pituitary gland, infundibular stalk, and hypothalamus. Normal tectal plate and pineal gland. Normal size of the ventricles and extra-axial spaces for the patient''s age. There are multiple white matter hyperintensities, distributed throughout the deep white matter tracts of the cerebral hemispheres, consistent with moderate chronic white matter ischemic changes. Normal bilateral basal ganglia. Normal thalami. There is no extra-axial fluid accumulation. Normal midbrain, cyndee and medulla. Normal cerebellum. Normal basal cisterns. MRI/Brain W/WO Contrast IMPRESSION: No acute intracranial abnormality. Unremarkable orbits. Moderate chronic microvascular ischemic changes. Electronically Signed: Barrett Morris MD at 14:51 EST Tel , Service support ,
[2021-05-30 16:56] LABS: CREATININE FINGERSTICK < 0.6 mg/dL (0.55-1.02); EGFR FINGERSTICK > 60.0000 mL/min (>60)
== END ==
PROVIDERS: PCP Internal Medicine; Referring Provider Internal Medicine; Visit Provider Internal Medicine
DX: H05.20 Unspecified exophthalmos (principal); I67.82 Cerebral ischemia
CPT/HCPCS: 70553; A9575

== ENCOUNTER 2021-07-12 09:25 | Outpatient (CLI) | payer MEDICARE, SELFPAY ==
--- NOTE | 2021-07-12 09:28 | BI_ITS ---
MAMMOGRAPHY - BILATERAL SCREENING REASON FOR EXAM: Female, 75 years old. Routine annual screening examination. PERTINENT HISTORY: Sister with breast cancer. Aunt with breast cancer. TECHNIQUE: Digital bilateral breast avel (3D mammographic acquisition) in the CC and MLO projections. 2-D mediolateral oblique (MLO) and craniocaudad (CC) views of both breasts were obtained. CAD: Full Field Digital Mammography with Computer Added Detection was performed. COMPARISON: Comparison is made with prior study done 04/08/2020 and 02/25/2019. FINDINGS: Breast Composition: There are scattered areas of fibroglandular density. There are no dominant masses or suspicious calcifications. There is a 3 mm well-defined nodule in the central medial portion of the right breast. Correlation with ultrasound is recommended. Stable benign-appearing bilateral axillary lymph nodes. No other significant abnormalities are identified. BI/SCRN MAMM (CAD)W/AVEL BILAT IMPRESSION: 3 mm well-defined nodule in the central medial portion of the right breast. Correlation with ultrasound is recommended. ASSESSMENT CATEGORY: BIRADS Category 0: Incomplete. Need additional imaging evaluation. A letter regarding these results will be sent to the patient by the facility within 30 days. Approximately 10% of breast cancers are not detected by mammography. A normal mammogram should not delay biopsy of a clinically suspicious abnormality. [id number] Electronically Signed: Ryan Correia MD at 10:33 EST ,
--- NOTE | 2021-07-12 09:52 | BD_ITS ---
STUDY: DUAL ENERGY X-RAY ABSORPTIOMETRY / DXA REASON FOR EXAM: Female, 75 years old. [id number]. The patient is postmenopausal. TECHNIQUE: Bone Mineral Density (BMD) measurements of lumbar spine and bilateral hips were obtained. COMPARISON: Comparison is made with prior study dated 03/05/2019. FINDINGS: Lumbar Spine (L1-L4): g/cm2 (0.939) / T-score (-0.7) / Z-score (1.7) Findings are suggestive of normal bone density with a low fracture risk. Left Femur Total: g/cm2 (0.884) / T-score (-0.5) / Z-score (1.4) Left Femoral Neck: g/cm2 (0.611) / T-score (-2.1) / Z-score (0.0) Right Femur Total: g/cm2 (0.892) / T-score (-0.4) / Z-score (1.5) Right Femoral Neck: g/cm2 (0.65) / T-score (-1.7) / Z-score (0.4) The T-Scores on the most recent prior examination were: Lumbar Spine (L1-L4): There has been worsening of bone density since the previous examination. Left Femur Total: which represents an improvement of 7.9%. Right Femur Total: which represents an improvement of 9.1%. BD/Dexa Bone Density Study IMPRESSION: The patient is considered osteopenic as outlined below according to World Wood Organization (WHO) criteria with a high fracture risk. There has been improvement of bone density since the previous examination. Reference Information: The T-score is the number of standard deviations above or below the standard which is normal for young adults at their peak bone mineral density. The World Health Organization (WHO) interprets the T-scores as follows: Above -1 Normal bone density Between -1 and -2.5 Osteopenia Equal to / or below -2.5 Osteoporosis As a practical clinical guideline, osteopenia may be graded as follows: Mild -1 through -1.5 Moderate -1.6 through -2.0 Severe -2.1 through -2.4 The Z-score is the number of standard deviations above or below age-matched controls. A Z-score of less than -1.5 would be considered abnormal. References: 1. NIH Osteoporosis and Related Bone Diseases www osteo.org 2. International Society for Clinical Densitometry www iscd.org 3. National Osteoporosis Foundation www nof.org Electronically Signed: yRan Correia MD at 10:11 EST ,
== END 2021-07-12 23:59 | disposition short-term general hospital (02) ==
LOC: OPBD 09:25
PROVIDERS: PCP Internal Medicine; Referring Provider Internal Medicine; Visit Provider Internal Medicine
DX: Z12.31 Encounter for screening mammogram for malignant neoplasm of breast (principal); Z78.0 Asymptomatic menopausal state
CPT/HCPCS: 77063; 77067; 77080

== ENCOUNTER 2021-07-19 14:51 | Outpatient (CLI) | payer MEDICARE, SELFPAY ==
--- NOTE | 2021-07-19 14:56 | US_ITS ---
STUDY: ULTRASOUND BREAST - RIGHT REASON FOR EXAM: Female, 75 years old. Abnormal screening mammogram. TECHNIQUE: Axial and longitudinal images of the RIGHT breast were performed with a high resolution ultrasound transducer. # OF IMAGES: 13 COMPARISON: Comparison is made with prior mammogram dated 07/12/2021. FINDINGS: RIGHT Breast: The mammographic abnormality corresponds to a 3 mm x 3 mm x 3 mm cyst at the 2 o''clock position of the right breast at 5 cm from the nipple. US/Breast Limited Unilateral IMPRESSION: The mammographic abnormality corresponds to a 3 mm x 3 mm x 3 mm cyst at the 2 o''clock position of the breast at 5 cm from the nipple. ASSESSMENT CATEGORY: BIRADS Category 2: Benign. A letter regarding these results will be sent to the patient by the facility within 30 days. Electronically Signed: Ryan Correia MD at 9:40 EST ,
== END 2021-07-19 23:59 | disposition home or self-care (01) ==
PROVIDERS: PCP Internal Medicine; Referring Provider Internal Medicine; Visit Provider Internal Medicine
DX: R92.8 Other abnormal and inconclusive findings on diagnostic imaging of breast (principal)
CPT/HCPCS: 76642

== ENCOUNTER 2021-08-02 13:04 | Outpatient (CLI) | payer MEDICARE, SELFPAY ==
--- NOTE | 2021-08-02 13:14 | ECHOD_ITS ---
Reason For Study: PVCs Procedure This was a 2D Doppler, Color Flow transthoracic echocardiogram. The study was technically difficult. Exam performed in department. Left Ventricle Normal LV size. Left ventricular systolic function is normal. The estimated ejection fraction is 65 %. There is evidence of diastolic dysfunction. No regional wall motion abnormalities noted. Right Ventricle Normal RV size. Normal systolic function. Atria The left atrium is mildly enlarged. Normal right atrium. No doppler evidence for ASD. Mitral Valve There is moderate mitral annular calcification. Extension of the mitral annular calcification on the base of the posterior mitral valve leaflet. Trivial mitral valve insufficiency. Tricuspid Valve Normal tricuspid valve. Trivial tricuspid valve insufficiency. Right ventricular systolic pressure estimated to be 28 mmHg. Aortic Valve Trisinus/trileaflet aortic valve. Normal aortic valve. Pulmonic Valve The pulmonic valve is not well visualized. Great Vessels Normal sized aortic root. Pericardium/Pleural No pericardial effusion. MMode/2D Measurements & Calculations LVIDd: 4.3 cm IVSd: 0.97 cm Ao root diam: 3.6 cm LVIDs: 2.4 cm LVPWd: 1.0 cm RVDd: 2.8 cm FS: 44.5 % LAV(MOD-bp): 66.8 ml LVAd ap4: 21.0 cm2 SV(MOD-sp4): 34.7 ml LAV(MOD-bp) Indexed: 34.5 ml/m2 LVLd ap4: 6.7 cm LAV(MOD-sp2): 60.4 ml EDV(MOD-sp4): 53.7 ml LAV(MOD-sp4): 70.8 ml EDV(sp4-el): 56.0 ml LVAs ap4: 11.3 cm2 LVLs ap4: 5.6 cm ESV(MOD-sp4): 19.0 ml ESV(sp4-el): 19.0 ml EF(MOD-sp4): 64.7 % EF(sp4-el): 66.1 % SV(sp4-el): 37.0 ml LA A4 area: 23.0 cm2 LA dimension(2D): 4.0 cm RA A4 area: 10.1 cm2 Time Measurements MV dec time: 0.46 sec Doppler Measurements & Calculations MV E max virgilio: 85.7 cm/sec Lat Peak E' Virgilio: 3.0 cm/sec Med Peak E' Virgilio: 3.0 cm/sec MV A max virgilio: 142.4 cm/sec E/E' lat: 28.9 E/E' med: 28.9 MV E/A: 0.60 MV V2 max: 162.0 cm/sec MV P1/2t max virgilio: 79.3 cm/sec Ao V2 max: 137.0 cm/sec MV max P.5 mmHg MV P1/2t: 137.0 msec Ao max P.5 mmHg MV V2 mean: 75.4 cm/sec Ao V2 mean: 105.6 cm/sec MV mean P.7 mmHg MV dec slope: 169.5 cm/sec2 Ao mean P.7 mmHg MV V2 VTI: 36.4 cm MVA(P1/2t): 1.6 cm2 Ao V2 VTI: 28.2 cm LV V1 max: 125.9 cm/sec PA V2 max: 134.4 cm/sec TR max virgilio: 250.8 cm/sec LV V1 max P.3 mmHg TR max P.2 mmHg ECHO/Echo Complete Interpretation Summary The study was technically difficult. Left ventricular systolic function is normal. The estimated ejection fraction is 65 %. The left atrium is mildly enlarged. There is moderate mitral annular calcification. Extension of the mitral annular calcification on the base of the posterior mitr al valve leaflet. Trivial mitral valve insufficiency. Trivial tricuspid valve insufficiency. Right ventricular systolic pressure estimated to be 28 mmHg. There is evidence of diastolic dysfunction. Ordering Physician: Na Valente Referring Physician: Na Valente Performed By: Nelsy Velazco, BUBBA, RVT
--- NOTE | 2021-08-02 13:15 | CDU_ITS ---
Reason For Study: Stenosis Rt. Velocities/BP Lt. Velocities/BP Prox CCA 68.2/14.7 cm/sec. Prox CCA 73.9/14.4 cm/sec. Mid CCA 63/12.1 cm/sec. Mid CCA 59.8/7.8 cm/sec. Dist CCA 60/13.4 cm/sec. Dist CCA 55.1/13.5 cm/sec. Prox ICA 37.1/11.6 cm/sec. Prox ICA 70/16 cm/sec. Mid ICA 67.4/22 cm/sec. Mid ICA 55.2/16.8 cm/sec. Dist ICA 67.4/20.1. cm/sec. Dist ICA 60.5/20.3 cm/sec. Rt. ICA/CCA = 1.07. Lt. ICA/CCA = 1.17. Prox ECA 48.6/5.6 cm/sec. Prox ECA 33.4/8.1 cm/sec. Rt. Vert. 29.6/10.7 cm/sec. Lt. Vert. 35.2/9 cm/sec. Right Extracranial There is homogeneous, smooth atherosclerotic plaque noted in the right common carotid artery. There is intimal thickening but no significant atherosclerotic plaque noted in the right internal carotid artery. There is intimal thickening but no significant atherosclerotic plaque noted in the right external carotid artery. Antegrade flow is noted in the right vertebral artery. Left Extracranial There is homogeneous, smooth atherosclerotic plaque noted in the left common carotid artery. There is homogeneous, smooth atherosclerotic plaque noted in the left internal carotid artery. There is intimal thickening but no significant atherosclerotic plaque noted in the left external carotid artery. Antegrade flow is noted in the left vertebral artery. Procedure Carotid Duplex [id number]. This is a Carotid Duplex examination using B-mode, color flow and specral Doppler. Exam performed in department. VL/Carotid Duplex Ultrasound Interpretation Summary No significant atherosclerotic plaque or stenosis noted in the right internal c arotid artery. Mild (<50%) stenosis left extracranial internal carotid. Flow within the vertebral a rteries is antegrade bilaterally. Ordering Physician: Na Valente Referring Physician: Na Valente Performed By: Libertad Fernandez RVT
--- NOTE | 2021-08-02 13:16 | US_ITS ---
STUDY: THYROID ULTRASOUND REASON FOR EXAM: Female, 75 years old. Thyroid nodules. TECHNIQUE: Ultrasound evaluation of the thyroid was performed with real-time and static mercedes-scale imaging. COMPARISON: Comparison is made with prior examination of 04/08/2020. FINDINGS: RIGHT LOBE: The right lobe of the thyroid gland measures 4.2 cm x 2.1 cm x 1.9 cm. There is a heterogeneous echotexture. Multiple nodules are seen. The largest nodule measures 1.5 cm x 1.2 size by 1.2 cm. This is solid and isoechoic. This is unchanged. Stable 1 cm x 0.8cm x 1.2 cm solid and cystic nodule. LEFT LOBE: The left lobe of the thyroid gland measures 3.8 cm x 2 cm x 1.4 cm. There is a heterogeneous echotexture. Once again, multiple nodules are seen. The largest nodule measures 1.8 cm x 1.6 x 1.2 cm. This nodule is solid. This is essentially unchanged. ISTHMUS: The isthmus measures 4 mm. The regional lymph nodes are normal. US/Thyroid IMPRESSION: Stable examination. Electronically Signed: Ryan Correia MD at 15:17 EST ,
[2021-08-02 15:45] LABS: Absolute Lymphocyte Count 1.71 X10^3/uL (0.83-4.51); Absolute Neutrophil Count 5.4 X10^3/uL (2.0-7.7); Basophil# 0.04 X10^3/uL; Basophil% 0.5 % (0-1); Eosinophils% 1.3 % (0-5); Hematocrit 41.7 % (37-47); Hemoglobin 13.9 g/dL (12.0-15.0); Lymphocyte # 1.71 X10^3/ul (0.83-4.51); Lymphocyte % 21.9 % (19-41); Mean Corp Hgb Conc 33.3 g/dL (32-36); Mean Corpuscular Hgb 31.2 pg (27.0-32.0); Mean Corpuscular Volume 93.7 fL (81-99); Mean Platelet Vol. 10.8 fl (6.2-12.0); Monocyte# 0.53 X10^3/uL; Monocyte% 6.8 % (0-10); NRBC Flagged by Analyzer 0 % (0-5); Neutrophil # 5.39 X10^3/uL (2.7-7.7); Neutrophil % 69.1 % (47-70); Platelet Count 222 K/mm3 (150-450); RBC Distribution Width CV 13.4 % (11.6-14.6); RBC Distribution Width SD 46.1 fl (35.1-43.9); Red Blood Count 4.45 M/mm3 (4.2-5.4); White Blood Count 7.8 K/mm3 (4.4-11.0)
[2021-08-02 15:57] LABS: Hemoglobin A1c 6.4 % (3.8-5.6)
[2021-08-02 16:25] LABS: Vitamin D,25 Hydroxy 37.6 ng/mL
[2021-08-02 16:34] LABS: ALB/GLOB Ratio 1.1 RATIO (0.9-2.4); AST(SGOT) 21 U/L (15-37); Alanine Aminotransfer ALT/SGPT 31 U/L (13-56); Albumin, Serum 3.4 g/dL (3.2-5.0); Alkaline Phosphatase 75 U/L (45-117); Anion Gap 6 (5-15); BUN 23 mg/dL (7-18); BUN/Creat Ratio 32.8 RATIO (10-20); Chloride 108 mmol/L (98-107); Cholesterol 150 mg/dL (200); EST Glomerular Filtration Rate 86 mL/min (>60); Est Glom Filt Rate - Afr Amer 104 mL/min (>60); Free T3 2.4 pg/mL (2.18-3.98); Globulin 3.1 g/dL (2.2-4.2); Glucose 105 mg/dL (74-106); High Density Lipoprotein 40 mg/dL; Potassium 3.9 mmol/L (3.5-5.1); Protein, Total 6.5 g/dL (6.4-8.2); Sodium Level 140 mmol/L (136-145); T4 Free Direct 0.92 ng/dL (0.76-1.46); Triglycerides 194 mg/dL; Very Low Density Lipoprotein 39 mg/dL (5-40)
[2021-08-05 09:49] LABS: Thyroid Stim Immunoglob <0.10 IU/L (0.00-0.55)
== END 2021-08-02 23:59 | disposition home or self-care (01) ==
PROVIDERS: PCP Internal Medicine; Referring Provider Internal Medicine; Visit Provider Internal Medicine
DX: I11.9 Hypertensive heart disease without heart failure (principal); E11.9 Type 2 diabetes mellitus without complications; H05.20 Unspecified exophthalmos; M85.80 Other specified disorders of bone density and structure, unspecified site; I65.23 Occlusion and stenosis of bilateral carotid arteries; E04.2 Nontoxic multinodular goiter; I49.3 Ventricular premature depolarization
CPT/HCPCS: 36415; 76536; 80053; 80061; 82306; 83036; 84439; 84443; 84445; 84481; 85025; 93306; 93880

== ENCOUNTER 2021-08-17 08:40 | Outpatient (CLI) | payer MEDICARE, SELFPAY ==
--- NOTE | 2021-08-17 08:54 | US_ITS ---
STUDY: ULTRASOUND BREAST - LEFT REASON FOR EXAM: Female, 75 years old. Left axillary tenderness. TECHNIQUE: Axial and longitudinal images of the LEFT breast were performed with a high resolution ultrasound transducer. # OF IMAGES: 70 COMPARISON: Comparison is made with prior mammogram dated 07/12/2021. FINDINGS: LEFT Breast: The left axilla was examined by ultrasound. Small lymph nodes are seen in the left maxillary region. The largest measures 2 cm x 1.1 cm x 0.9 cm. A fatty hilum is seen. US/Breast Limited Unilateral IMPRESSION: Findings suggestive of benign appearing left axillary lymph nodes. ASSESSMENT CATEGORY: BIRADS Category 2: Benign. A letter regarding these results will be sent to the patient by the facility within 30 days. Electronically Signed: Ryan Correia MD at 15:41 EST ,
== END 2021-08-17 23:59 | disposition home or self-care (01) ==
LOC: OPUS 08:41
PROVIDERS: PCP Internal Medicine; Visit Provider Internal Medicine
DX: N64.4 Mastodynia (principal)
CPT/HCPCS: 76642

== ENCOUNTER → 2022-06-21 | Outpatient (CLI) | payer MEDICARE, SELFPAY ==
--- NOTE | 2022-06-21 16:47 | CT_ITS ---
EXAM: CT ABDOMEN AND PELVIS WITH INTRAVENOUS CONTRAST CLINICAL INDICATION: RLQ PAIN TECHNIQUE: Helically acquired images were obtained of the abdomen and pelvis with intravenous contrast. CTDIvol = ( 18.40 ) mGy, DLP = ( 1175.42 ) mGycm This CT exam was performed using one or more of the following dose reduction techniques: automated exposure control, adjustment of the mA and/or kV according to patient size, and/or use of iterative reconstruction technique. This report was created using [employer] report [employer] technology. CONTRAST: Oral and IV Readi-CAT and 100mL Isovue-370 COMPARISON: January 25, 2020 CT FINDINGS: LOWER THORAX: Incompletely imaged pulmonary nodules at the lung bases, largest at the right of measuring up to 2 cm. This is not completely imaged but is noncalcified and circumscribed. Suggest further investigation with PET CT and consider the possibility of metastasis given multiplicity of lesions and advanced age. No cardiomegaly. No significant pericardial effusion. ABDOMEN: LIVER: Hepatic steatosis. GALLBLADDER AND BILE DUCTS: Unremarkable. No calcified gallstones. No gallbladder distention or wall edema. No intra- or extrahepatic biliary ductal dilation. PANCREAS: Unremarkable. No focal cystic or solid mass. SPLEEN: Unremarkable. Normal size without focal cystic or solid mass. ADRENALS: Unremarkable. No nodules. KIDNEYS AND URETERS: Very small exophytic cyst arising from the upper pole of the right kidney. Punctate nonobstructing calyceal calculus at the lower pole of the right kidney. No other renal abnormalities. STOMACH AND BOWEL: Gastric diverticulum near the fundus. Distal colonic diverticulosis but no acute diverticulitis. No colitis. No bowel obstruction. PELVIS: APPENDIX: No evidence of acute appendicitis. BLADDER: Unremarkable. REPRODUCTIVE: Unremarkable as visualized. No mass. ABDOMEN and PELVIS: INTRAPERITONEAL SPACE: Unremarkable. No free air or free fluid. BONES/JOINTS: Degenerative changes of the pelvis and spine. No suspicious lytic or blastic abnormality. SOFT TISSUES: Unremarkable. No discrete abdominal or pelvic wall hernia. VASCULATURE: Unremarkable. Abdominal aorta is non-dilated. LYMPH NODES: Unremarkable. No enlarged lymph nodes. CT/Abdomen/Pelvis WITH Contrast IMPRESSION: Incompletely imaged pulmonary nodules at the lung bases, largest at the right of measuring up to 2 cm. This is not completely imaged but is noncalcified and circumscribed. Suggest further investigation with PET CT and consider the possibility of metastasis given multiplicity of lesions and advanced age. No appendicitis or other acute or inflammatory disease or bowel obstruction. Electronically Signed: Cj Armstrong MD at 3:01 EST ,
[2022-06-21 17:20] LABS: CREATININE FINGERSTICK < 0.9 mg/dL (0.55-1.02); EGFR FINGERSTICK > 60.0000 mL/min (>60)
== END | disposition home or self-care (01) ==
LOC: CT 16:43
PROVIDERS: PCP Internal Medicine; Visit Provider Internal Medicine
DX: R10.31 Right lower quadrant pain (principal)
CPT/HCPCS: 74177; Q9967

== ENCOUNTER 2022-07-20 09:19 | Outpatient (CLI) | payer MEDICARE, SELFPAY ==
[2022-07-20 09:53] LABS: Erythrocyte Sedimentation Rate 10 mm/hr (0-30)
[2022-07-20 09:56] LABS: Absolute Lymphocyte Count 1.43 X10^3/uL (0.83-4.51); Absolute Neutrophil Count 6.4 X10^3/uL (2.0-7.7); Basophil# 0.03 X10^3/uL; Basophil% 0.4 % (0-1); Eosinophil# 0.07 X10^3/uL; Eosinophils% 0.8 % (0-5); Hematocrit 44.6 % (37-47); Hemoglobin 14.7 g/dL (12.0-15.0); Lymphocyte # 1.43 X10^3/ul (0.83-4.51); Lymphocyte % 16.7 % (19-41); Mean Corpuscular Hgb 31.8 pg (27.0-32.0); Mean Corpuscular Volume 96.5 fL (81-99); Mean Platelet Vol. 11.1 fl (6.2-12.0); Monocyte# 0.59 X10^3/uL; Monocyte% 6.9 % (0-10); NRBC Flagged by Analyzer 0 % (0-5); Neutrophil # 6.41 X10^3/uL (2.7-7.7); Neutrophil % 74.7 % (47-70); Platelet Count 207 K/mm3 (150-450); RBC Distribution Width CV 13.2 % (11.6-14.6); RBC Distribution Width SD 47.5 fl (35.1-43.9); Red Blood Count 4.62 M/mm3 (4.2-5.4); White Blood Count 8.6 K/mm3 (4.4-11.0)
[2022-07-20 10:18] LABS: AST(SGOT) 16 U/L (15-37); Alanine Aminotransfer ALT/SGPT 25 U/L (13-56); Albumin, Serum 3.5 g/dL (3.2-5.0); Alkaline Phosphatase 70 U/L (45-117); Anion Gap 7 (5-15); BUN 19 mg/dL (7-18); BUN/Creat Ratio 22.5 RATIO (10-20); Calcium,Total 9.7 mg/dL (8.5-10.1); Chloride 105 mmol/L (98-107); Creatinine, Serum 0.84 mg/dL (0.55-1.02); EST Glomerular Filtration Rate 69 mL/min (>60); Est Glom Filt Rate - Afr Amer 84 mL/min (>60); Globulin 3.4 g/dL (2.2-4.2); Glucose 152 mg/dL (74-106); LDH 180 U/L (84-246); Potassium 4.1 mmol/L (3.5-5.1); Protein, Total 6.9 g/dL (6.4-8.2); Sodium Level 140 mmol/L (136-145)
[2022-07-23 16:09] LABS: Endomysial Antibody IgA Negative (Negative)
[2022-07-23 23:22] LABS: Immunoglobulin A 204 mg/dL (64-422); t-Transglutaminase IgA <2 U/mL (0-3)
[2022-07-27 11:09] LABS: Anti-Centromere B Ab <0.2 AI (0.0-0.9); Anti-Chromatin <0.2 AI (0.0-0.9); Anti-Jo <0.2 AI (0.0-0.9); Anti-Scleroderma-70 AB 0.3 AI (0.0-0.9); Beef <0.10 kU/L (Class 0); Corn 0.26 kU/L (Class 0/I); Egg, Whole <0.10 kU/L (Class 0); Milk (Cow) <0.10 kU/L (Class 0); Peanut 0.27 kU/L (Class 0/I); Pork <0.10 kU/L (Class 0); RNP Ab 0.2 AI (0.0-0.9); SJOGREN'S Anti-SS-A test < 0.2 AI (0.0-0.9); SJOGREN'S Anti-SS-B test 0.3 AI (0.0-0.9); Smith Ab <0.2 AI (0.0-0.9); Wheat 0.21 kU/L (Class 0/I)
[2022-07-27 17:20] LABS: Anti-dsDNA Ab 1 IU/mL (0-9); Chocolate <0.10 kU/L (Class 0)
[2022-07-28 16:08] LABS: Albumin 3.4 g/dL (2.9-4.4); Alpha-1-Globulins 0.3 g/dL (0.0-0.4); Alpha-2-Globulins 0.9 g/dL (0.4-1.0); Cytoplasmic Ab (C-ANCA) <1:20 titer (Neg:<1:20); Gamma Globulin 0.6 g/dL (0.4-1.8); Immunoglobulin A 202 mg/dL (64-422); Immunoglobulin E 18 IU/mL (6-495); Immunoglobulin G 607 mg/dL (586-1602); Immunoglobulin M 42 mg/dL (26-217); PROEL- TOTAL PROTEIN 6.1 g/dL (6.0-8.5)
[2022-07-28 22:19] LABS: Perinuclear Ab (P-ANCA) <1:20 titer (Neg:<1:20)
== END 2022-07-20 23:59 | disposition home or self-care (01) ==
PROVIDERS: PCP Internal Medicine; Referring Provider Internal Medicine Gastroenterology; Visit Provider Internal Medicine Gastroenterology
DX: R19.5 Other fecal abnormalities (principal); R53.83 Other fatigue
CPT/HCPCS: 36415; 80053; 82784; 82785; 83516; 83615; 84165; 85025; 85652; 86003; 86005; 86140; 86225; 86235; 86255; 86256; 86334

== ENCOUNTER → 2022-08-04 | Outpatient (CLI) | payer MEDICARE, SELFPAY ==
[2022-08-09 18:38] LABS: Calprotectin, Stool 23 ug/g (0-120)
[2022-08-09 18:39] LABS: Pancreatic Elastase, Fecal 116 (>200)
== END | disposition home or self-care (01) ==
LOC: LAB 10:36
PROVIDERS: PCP Internal Medicine; Referring Provider Internal Medicine Gastroenterology; Visit Provider Internal Medicine Gastroenterology
DX: R19.5 Other fecal abnormalities (principal)
CPT/HCPCS: 82653; 83630; 83993; 87177; 87209; 87329

== ENCOUNTER → 2022-08-06 | Outpatient (CLI) | payer MEDICARE, SELFPAY ==
--- NOTE | 2022-08-06 09:52 | US_ITS ---
STUDY: ABDOMINAL ULTRASOUND - RIGHT UPPER QUADRANT REASON FOR VISIT: Female, 76 years old . Fatty infiltration of the liver. TECHNIQUE: Ultrasound evaluation of the right upper quadrant was performed with real-time and static mercedes-scale imaging. TECHNICAL QUALITY: Adequate. COMPARISON: Comparison is made with prior CT scan abdomen and pelvis dated 06/21/2022. FINDINGS: Liver: The liver is enlarged and measures 19.9 cm. There is increased echogenicity consistent with fatty infiltration. The bile ducts are within normal limits. There is hepatic color flow. The direction of portal flow is hepatopetal. There is no demonstrated mass lesion. Gallbladder: The patient is status post cholecystectomy. Common Bile Duct (C.B.D.): The common bile duct measures 5 mm. Pancreas: Normal size of the head, body and tail of the pancreas. There is normal echogenicity of the pancreas. There is no demonstrated pancreatic mass or cyst. Right Kidney: Normal size of the right kidney. The right kidney measures 9.9 cm x 5.1 cm x 4.8 cm. Normal renal cortex. The right cortex measures 1.3 cm. There is no demonstrated renal mass or cyst. There is no right hydronephrosis. US/Abdomen Limited IMPRESSION: Hepatomegaly. Fatty infiltration of the liver. Electronically Signed: Ryan Correia MD at 15:08 EST ,
--- NOTE | 2022-08-06 09:52 | US_ITS ---
STUDY: ABDOMINAL ULTRASOUND - ELASTOGRAPHY REASON FOR VISIT: Female, 76 years old. Fatty infiltration of the liver. TECHNIQUE: Liver stiffness measurements were obtained on a [employer] RS 85 ultrasound machine using a CA 1-7 probe following the SRU guidelines. 3 measurements were obtained using a 2-D-SWE method. TheIQR/M was 12% suggesting a quality data set. TECHNICAL QUALITY: Adequate. COMPARISON: Comparison is made with prior study done earlier today. FINDINGS: Liver: Fatty infiltration of the liver. Median liver stiffness measured 7.3 kPa. US/Elastography Parenchyma/Organ IMPRESSION: Liver stiffness measures 7.3 kPa compatible with F2-F3 (Mild to moderate liver fibrosis) Metavir score. Electronically Signed: Ryan Correia MD at 15:10 EST ,
== END | disposition home or self-care (01) ==
LOC: US 09:51
PROVIDERS: PCP Internal Medicine; Referring Provider Internal Medicine Gastroenterology; Visit Provider Internal Medicine Gastroenterology
DX: K76.0 Fatty (change of) liver, not elsewhere classified (principal)
CPT/HCPCS: 76705; 76981

== ENCOUNTER 2022-08-14 10:42 | Day surgery (SDC) | payer MEDICARE, SELFPAY ==
[2022-08-14] VITALS (8 sets, daily range): BP systolic 112–142; BP diastolic 65–81; PULSE 59–70; RESP 16; TEMP 36.1–36.8; O2SAT 94–97; BMI 31.6
[2022-08-14] MEDS: Lactated Ringers 1,000 ML 15 ML IV (11:23)
[2022-08-14 11:46] LABS: Bedside Glucose 120 mg/dL (74-106)
--- NOTE | 2022-08-14 12:00 | COLBX_PTH ---
PATIENT: SAWYER MAJANO LOC: EN U#:[id number] AGE/SX: 76/F ROOM: RE08/14/[address]: Dr. Alan Leung DO : 1945 BED: DIS: 08/14/2022 SPEC #: [id number] RECD: 08/14/22 14:24 STATUS: PAYAM REViridiana #: [id number] BEATRIZ: 08/14/22 12:[address]: Alan Leung DEPT: SURGICAL PATHOLOGY RECD BY: Travis Alvares ENTERED: 08/15/22 08:12 SP TYPE: COLON BX OTHR DR: Dr. Na Valente DO Tissues: A - Duodenum, NOS B - Gastric mucous membrane C - Esophagus, NOS D - Transverse colon E - Sigmoid colon biopsy F - Sigmoid colon biopsy Procedures: Special Stain Group II Surgery Specimen Level IV Alcian Blue/PAS (control) HEADER OPERATION: Colonoscopy, EGD (MAC), biopsy PRE-OP DIAGNOSIS: Loose stools, hepatic steatosis, pancreatic atrophy TISSUE SUBMITTED: A ? Duodenum biopsy, B ? Gastric body biopsy, C ? Distal esophagus biopsy, D ? Transverse polyp biopsy, E ? Sigmoid colon pseudo-polyp biopsy, F ? Sigmoid colon colitis biopsy MICROSCOPIC DIAGNOSIS A. Duodenum, biopsy: No pathologic change. B. Gastric body, biopsy: Chronic gastritis. See comment. C. Distal esophagus, biopsy: Gastroesophageal junctional mucosa with mild chronic inflammation. Focal changes of reflux. No evidence of goblet cell metaplasia. See comment. D. Transverse colon polyp, biopsy: Fragments of tubular adenoma. E. Sigmoid colon polyp, biopsy: Benign mucosal polyp. See comment. F. Sigmoid colon, biopsy: Focal mucosal ischemic change. AM:pepper 08/16/2022 COMMENT B. The results of immunohistochemistry for Helicobacter pylori will be reported separately ([id number]). C. Alcian blue/PAS stain with matched control supports the above diagnosis. E. Neither hyperplastic nor adenomatous change is identified. Clinical correlation is suggested. MICROSCOPIC DESCRIPTION Slides are reviewed. GROSS DESCRIPTION A - Received in fixative is one container labeled with the patient's name and designated duodenum biopsy. The specimen consists of multiple irregular fragments of light varela soft tissue that in aggregate measure 1.0 x 0.4 x 0.1 cm. The specimen is totally submitted in one cassette. B - Received in fixative is one container labeled with the patient's name and designated gastric body biopsy. The specimen consists of two irregular fragments of light varela soft tissue that in aggregate measure 0.5 x 0.4 x 0.1 cm. The specimen is totally submitted in one cassette. C - Received in fixative is one container labeled with the patient's name and designated distal esophagus biopsy. The specimen consists of multiple irregular fragments of light varela soft tissue that in aggregate measure 1.5 x 0.3 x 0.1 cm. The specimen is totally submitted in one cassette. D - Received in fixative is one container labeled with the patient's name and designated transverse polyp biopsy. The specimen consists of one irregular fragment of light varela soft tissue that measures 0.4 x 0.3 x 0.1 cm. The specimen is totally submitted in one cassette. E - Received in fixative is one container labeled with the patient's name and designated sigmoid colon pseudo-polyp biopsy. The specimen consists of one irregular fragment of light varela soft tissue that measures 0.3 x 0.3 x 0.1 cm. The specimen is totally submitted in one cassette. F - Received in fixative is one container labeled with the patient's name and designated sigmoid colon colitis biopsy. The specimen consists of multiple irregular fragments of light varela soft tissue that in aggregate measure 0.6 x 0.3 x 0.1 cm. The specimen is totally submitted in one cassette. / SJ:pepper 08/15/2022 TC:3 CPT: 63551 x6, 98127
--- NOTE | 2022-08-14 12:00 | IMM_PTH ---
PATIENT: SAWYER MAJANO LOC: EN U#:[id number] AGE/SX: 76/F ROOM: RE08/14/[address]: Dr. Alan Leung DO : 1945 BED: DIS: 08/14/2022 SPEC #: [id number] RECD: 08/15/22 09:38 STATUS: PAYAM REQ #: [id number] BEATRIZ: 08/14/22 12:[address]: Alan Leung DEPT: IMMUNOHISTOCHEMISTRY RECD BY: Ira Francis ENTERED: 08/15/22 09:38 SP TYPE: IMMUNO OTHR DR: Dr. Na Valente DO Tissues: B - Stomach, NOS Procedures: H Pylori (initial) PHYSICIAN & INSTITUTION [place] [id number] SPECIMEN INFORMATION: Tissue Source: B ? Gastric body biopsy Clinical Info: Loose stools, hepatic steatosis, pancreatic atrophy Specimen Number: [id number] CPT code: 63652 METHODOLOGY: Deparaffinized sections of prefer/formalin-fixed tissue or PAP/DQ stained slides are incubated with monoclonal/polyclonal antibodies/oligonucleotide probes. Localization is made via biotin free immunoperoxidase method. Appropriate controls are performed and reacted as expected. Results on target cell population are indicated in the following table: RESULTS: ANTIBODY / CLONE RESULT Block B H Pylori (polyclonal) negative These tests were developed and their performance characteristics determined by [facility]. They may not have been cleared or approved by the U.S. Food and Drug Administration. The FDA has determined that such clearance or approval is not necessary. The above immunohistochemical/dualISH markers are ordered and reviewed by the Pathologist. INTERPRETATION: B. Gastric body, biopsy: Negative for Helicobacter pylori organisms. AM:pepper 08/16/2022
--- NOTE | 2022-08-14 12:12 | HP.PCM_ITS ---
History and Physical Date of Admission: 08/14/22 76 F who presents to the office today for Initial consult. GI Hx diverticulosis, colitis, microscopic colitis. PMH DMII, nephrolithiasis. PSH cholecystectomy ~2012.FH father pancreatic cancer. CT abd/pel 01.18.11 hepatic hypodense nodule, hemangioma; circumferential wall thickening from hepatic flexure to rectum with increased fat markings. Upper GI SBFT 07.06.11 without acute/chronic abnormality. Colonoscopy 2020 Dr. Watt finding small polyp which she reports as normal and significant diverticulosis. ?Reports history of difficulty colonoscopies r/t diverticulosis and unable to pass with juvenile scope CT abd/pel 06.21.22 incompletely imaged pulmonary nodules, recommend PET; hepatic steatosis; gastric diverticulum near fundus; distal colonic diverticulosis; renal cyst. ?*BGI established 07.20.22 with referral from PCP. Will have 4-6 days of no BM and will then have urgent loose stools (possibly food triggered) with RLQ abd di scomfort and urgency causing incontinence. Symptoms persist for several weeks and then spontaneously resolve. Feels issues started following cholecystectomy; started on cholestyramine following surgery which was helpful but continues to have symptoms. Certain foods trigger lower abdominal pain and diarrhea ? peppers, salsa, onions, corn. Mother and sister have similar issues. ROS Const Constitutional: No anorexia, fatigue, fever(s), weight change or sleep problems Eyes Eyes: No change in vision ENT ENT: No abnormal hearing, difficulty swallowing, mouth lesions, tongue swelling or throat swelling Resp Respiratory: No cough or shortness of breath Cardio Cardiology: No chest pain at rest, chest pain with exertion, shortness of breath or dyspnea on exertion Gastro GI: No difficulty swallowing Genitourinary-Female: No difficulty urinating or burning urination Musc Musculoskeletal: No joint pain, joint swelling, muscle weakness or decreased muscle mass Skin Skin: No hair loss in leg, yellowing of the eye, itchy eyes, rash, skin ulcer or skin swelling Neuro Neurology: No abnormal hearing, abnormal movements, confusion, unsteady gait/balance or memory loss Psych Psychiatric: No anxiety, No confusion and No memory loss Endo Endocrine: No fatigue or weight change Aller/Imm Allergy/Immunologic: No itchy eyes, throat swelling or tongue swelling Eyal/Lymp Hematologic/Lymphatic: No easy bleeding, easy bruising or enlarged lymph nodes Exam Const General: cooperative and comfortable Nutritional Appearance: average body habitus and well nourished HENMT Head: normal to inspection Ears: hearing grossly normal bilaterally Nose: external nose normal Face and sinus: normal facial exam Mouth: oral mucosae normal Throat: posterior oropharynx normal Eyes General: appearance normal, both eyes and all related structures Neck Neck: normal visual inspection Chest Chest palpation & inspection: normal inspection of the chest and normal palpation of entire chest wall Resp Effort & Inspection: normal respiratory effort Auscultation: Bilateral: Clear to Auscultation Cardio Palpation: normal PMI Rate: regular rate Rhythm: regular rhythm GI Inspection: normal to inspection Auscultation: normal bowel sounds Percussion: normal to percussion Palpation: no hepatosplenomegaly Skin General: no rashes or lesions noted Neuro General: patient alert Extrem General: normal to inspection Psych Affect: normal affect Quality Reporting Tobacco Screening ([facility] 138) Smoking Status: Former smoker Assessment and Plan Assessment and Plan (1) Loose stools: ?Status:?Chronic ?Plan: She gets more than stools that she takes NSAID medications.? She also complains diarrhea after she had a cholecystectomy which is consistent with bile acid induced diarrhea.? The differential diagnosis of collagenous colitis, colitis or lymphocytic colitis.? 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 Is being followed by harvest contractor. She will need to undergo colonoscopy with biopsies due to the fact that there is a possibility that she may have inflammatory bowel disease such as microscopic colitis.? We will get stool test for inflammatory disease of the bowel. (2) Hepatic steatosis: ?Status:?Acute ?Plan: Her recent CAT scan did show hepatic steatosis. Her CAT scan myself there appeared to be some irregularities of the left lobe of the liver.? There appeared to be some atrophy.? This could be also an isolated Christine's lobe.? I will get a FibroScan for further evaluation. (3) Pancreatic atrophy: ?Status:?Acute ?Plan: She does have prediabetes and possible diabetes that is diet controlled.? Her CT scan of the abdomen pelvis did show pancreatic atrophy.? Along with her complaints of some stools that are possibly reportedly also reported exocrine pancreatic insufficiency on her differential diagnosis.? Therefore we will get stool test and biochemical work-up. ? ? ? Orders: Orders Comprehensive Metabolic Profil Today R19.5 - Other fecal abnormalities ? CRP Today R19.5 - Other fecal abnormalities ? LDH Today R19.5 - Other fecal abnormalities ? CBC W/Diff, Automated Today R19.5 - Other fecal abnormalities, R53.83 - Other fatigue ? Erythrocyte Sed Rate Today R19.5 - Other fecal abnormalities ? Allergen, Rast Food Profile Today R19.5 - Other fecal abnormalities ? ESTEBAN Comprehensive Panel Today R19.5 - Other fecal abnormalities ? Calprotectin, Stool Today R19.5 - Other fecal abnormalities ? OVA+PARA w/Giardia EIA [id number] Today R19.5 - Other fecal abnormalities ? CDIFF (PCR) Today R19.5 - Other fecal abnormalities ? Stool Lactoferrin/WBC Today R19.5 - Other fecal abnormalities ? ANCA Today R19.5 - Other fecal abnormalities ? Celiac Disease Profile Today R19.5 - Other fecal abnormalities ? Immunoglobulins G/A/M/E Today R19.5 - Other fecal abnormalities ? BEBO + Protein Elect, Serum Today R19.5 - Other fecal abnormalities ? Pancreatic Elastase, Fecal Today R19.5 - Other fecal abnormalities ? Miscellaneous Lab Procedure Today R19.5 - Other fecal abnormalities ? I have examined the patient and the H&P has been reviewed. There are no clinical changes since date of exam.
--- NOTE | 2022-08-14 13:07 | OP.CCLET_ITS ---
08/14/2022 Na Valente Re : Upper GI endoscopy procedure for Angie Laguerre Dear Ambrosio This procedure was performed on Sunday, August 14, 2022. My impressions and recommendations are as follows: Impressions : - LA Grade C erosive esophagitis. Biopsied. - Moderate Schatzki ring. Dilated. - Medium-sized hiatal hernia. - Bile gastritis. Biopsied. - Chronic bile duodenitis. Biopsied. Recommendations : - Discharge patient to home. - Resume previous diet. - Use Protonix (pantoprazole) 40 mg PO BID for 8 weeks. - Continue present medications. My findings are described in the full procedure note, which is enclosed. If I can be of further assistance, please feel free to contact me at . Sincerely, Alan Friend, 08/14/2022 1:06:38 PM This report has been signed electronically.
--- NOTE | 2022-08-14 13:07 | OP.EGD_ITS ---
Patient Name: Angie Laguerre Procedure Date: 08/14/2022 12:14 PM Date of : 1945 Age: 76 Procedure: Upper GI endoscopy Indications: Epigastric abdominal pain, Functional Dyspepsia, Dysphagia Providers: Alan Leung DO Medicines: Monitored Anesthesia Care Patient Profile: This is a 76 year old female. Refer to note in patient chart for documentation of history and physical. Patient has symptoms of chronic abdominal cramping and acute epigastric abdominal pain. Complications: No immediate complications. Procedure: Pre-Anesthesia Assessment: - Prior to the procedure, a History and Physical was performed, and patient medications and allergies were reviewed. The risks and benefits of the procedure and the sedation options and risks were discussed with the patient. All questions were answered and informed consent was obtained. Patient identification and proposed procedure were verified by the physician in the pre-procedure area. Mental Status Examination: alert and oriented. Airway Examination: normal oropharyngeal airway and neck mobility. Respiratory Examination: clear to auscultation. CV Examination: normal. Prophylactic Antibiotics: The patient does not require prophylactic antibiotics. Prior Anticoagulants: The patient has taken no previous anticoagulant or antiplatelet agents. After reviewing the risks and benefits, the patient was deemed in satisfactory condition to undergo the procedure. The anesthesia plan was to use monitored anesthesia care (MAC). Immediately prior to administration of medications, the patient was re-assessed for adequacy to receive sedatives. The heart rate, respiratory rate, oxygen saturations, blood pressure, adequacy of pulmonary ventilation, and response to care were monitored throughout the procedure. The physical status of the patient was re-assessed after the procedure. After obtaining informed consent, the endoscope was passed under direct vision. Throughout the procedure, the patient's blood pressure, pulse, and oxygen saturations were monitored continuously. The colonoscope was introduced through the mouth, and advanced to the second part of duodenum. The upper GI endoscopy was accomplished without difficulty. The patient tolerated the procedure well. Scope In: 12:22:40 PM Scope Out: 12:29:14 PM Total Procedure Duration Time 0 hours 6 minutes 34 seconds Findings: LA Grade C (one or more mucosal breaks continuous between tops of 2 or more mucosal folds, less than 75% circumference) esophagitis with bleeding was found 34 to 38 cm from the incisors. Biopsies were taken with a cold forceps for histology. Verification of patient identification for the specimen was done. Estimated blood loss was minimal. A moderate Schatzki ring was found in the lower third of the esophagus. A guidewire was placed and the scope was withdrawn. Dilation was performed with a Savary dilator with no resistance at 45 Fr. The dilation site was examined and showed moderate improvement in luminal narrowing. Estimated blood loss was minimal. A medium-sized hiatal hernia was present. Diffuse moderate inflammation characterized by congestion (edema), erosions, erythema and granularity was found in the stomach. Biopsies were taken with a cold forceps for histology. Verification of patient identification for the specimen was done. Estimated blood loss was minimal. Patchy moderate inflammation characterized by congestion (edema), erosions, erythema and friability was found in the duodenal bulb, in the first portion of the duodenum and in the second portion of the duodenum. Biopsies were taken with a cold forceps for histology. Verification of patient identification for the specimen was done. Estimated blood loss was minimal. Impression: - LA Grade C erosive esophagitis. Biopsied. - Moderate Schatzki ring. Dilated. - Medium-sized hiatal hernia. - Bile gastritis. Biopsied. - Chronic bile duodenitis. Biopsied. Recommendation: - Discharge patient to home. - Resume previous diet. - Use Protonix (pantoprazole) 40 mg PO BID for 8 weeks. - Continue present medications. Procedure Code(s): --- Professional --- 83622, Esophagogastroduodenoscopy, flexible, transoral; with insertion of guide wire followed by passage of dilator(s) through esophagus over guide wire 45494, 59,51, Esophagogastroduodenoscopy, flexible, transoral; with biopsy, single or multiple CPT copyright 2017 [employer]. All rights reserved. The codes documented in this report are preliminary and upon deodorizer operator review may be revised to meet current compliance requirements. Alan Leung DO 08/14/2022 1:06:38 PM This report has been signed electronically. Number of Addenda: 0 Note Initiated On: 08/14/2022 12:14 PM
--- NOTE | 2022-08-14 13:12 | OP.COLON_ITS ---
Patient Name: Angie Laguerre Procedure Date: 08/14/2022 12:29 PM Date of : 1945 Age: 76 Procedure: Colonoscopy Indications: Abdominal pain in the left lower quadrant Providers: Alan Leung DO Medicines: Monitored Anesthesia Care Patient Profile: This is a 76 year old female. Refer to note in patient chart for documentation of history and physical. Patient has symptoms of chronic abdominal cramping and acute epigastric abdominal pain. Last Colonoscopy: 10 years ago. Complications: No immediate complications. Procedure: Pre-Anesthesia Assessment: - Prior to the procedure, a History and Physical was performed, and patient medications and allergies were reviewed. The risks and benefits of the procedure and the sedation options and risks were discussed with the patient. All questions were answered and informed consent was obtained. Patient identification and proposed procedure were verified by the physician in the pre-procedure area. Mental Status Examination: alert and oriented. Airway Examination: normal oropharyngeal airway and neck mobility. Respiratory Examination: clear to auscultation. CV Examination: normal. Prophylactic Antibiotics: The patient does not require prophylactic antibiotics. Prior Anticoagulants: The patient has taken no previous anticoagulant or antiplatelet agents. After reviewing the risks and benefits, the patient was deemed in satisfactory condition to undergo the procedure. The anesthesia plan was to use monitored anesthesia care (MAC). Immediately prior to administration of medications, the patient was re-assessed for adequacy to receive sedatives. The heart rate, respiratory rate, oxygen saturations, blood pressure, adequacy of pulmonary ventilation, and response to care were monitored throughout the procedure. The physical status of the patient was re-assessed after the procedure. After I obtained informed consent, the scope was passed under direct vision. Throughout the procedure, the patient's blood pressure, pulse, and oxygen saturations were monitored continuously. The colonoscope was introduced through the anus and advanced to the cecum, identified by appendiceal orifice and ileocecal valve. The colonoscopy was performed without difficulty. The patient tolerated the procedure well. The quality of the bowel preparation was good. Scope In: 12:32:31 PM Scope Withdrawal Time 0 hours 7 minutes 5 seconds Scope Out: 12:59:52 PM Total Procedure Duration Time 0 hours 27 minutes 21 seconds Findings: The perianal and digital rectal examinations were normal. Scattered large-mouthed diverticula were found in the recto-sigmoid colon, sigmoid colon, descending colon, splenic flexure and transverse colon. Localized moderate inflammation characterized by erosions, erythema and loss of vascularity was found in the recto-sigmoid colon and in the sigmoid colon. Biopsies were taken with a cold forceps for histology. Verification of patient identification for the specimen was done. Estimated blood loss was minimal. Two sessile polyps were found in the sigmoid colon and transverse colon. The polyps were 1 to 2 mm in size. These polyps were removed with a cold snare. Resection and retrieval were complete. Verification of patient identification for the specimen was done. Estimated blood loss was minimal. A moderate amount of stool was found in the rectum, in the recto-sigmoid colon, in the sigmoid colon, in the descending colon, at the splenic flexure, in the transverse colon, at the hepatic flexure and in the cecum, interfering with visualization. Non-bleeding internal hemorrhoids were found during retroflexion. The hemorrhoids were mild and Grade II (internal hemorrhoids that prolapse but reduce spontaneously). Impression: - Diverticulosis in the recto-sigmoid colon, in the sigmoid colon, in the descending colon, at the splenic flexure and in the transverse colon. - Localized moderate inflammation was found in the recto-sigmoid colon and in the sigmoid colon secondary to colitis. Biopsied. - Two 1 to 2 mm polyps in the sigmoid colon and in the transverse colon, removed with a cold snare. Resected and retrieved. - Stool in the rectum, in the recto-sigmoid colon, in the sigmoid colon, in the descending colon, at the splenic flexure, in the transverse colon, at the hepatic flexure and in the cecum. - Non-bleeding internal hemorrhoids. Recommendation: - Repeat colonoscopy in 3 years for surveillance. - Continue present medications. Procedure Code(s): --- Professional --- 61134, Colonoscopy, flexible; with removal of tumor(s), polyp(s), or other lesion(s) by snare technique 93950, 59, Colonoscopy, flexible; with biopsy, single or multiple CPT copyright 2017 [employer]. All rights reserved. The codes documented in this report are preliminary and upon cp bleacher operator review may be revised to meet current compliance requirements. Alan Leung DO 08/14/2022 1:11:56 PM This report has been signed electronically. Number of Addenda: 0 Note Initiated On: 08/14/2022 12:29 PM
--- NOTE | 2022-08-14 13:12 | OP.CCLET_ITS ---
08/14/2022 Na Valente Re : Colonoscopy procedure for Angie Laguerre Denis Valente This procedure was performed on Sunday, August 14, 2022. My impressions and recommendations are as follows: Impressions : - Diverticulosis in the recto-sigmoid colon, in the sigmoid colon, in the descending colon, at the splenic flexure and in the transverse colon. - Localized moderate inflammation was found in the recto-sigmoid colon and in the sigmoid colon secondary to colitis. Biopsied. - Two 1 to 2 mm polyps in the sigmoid colon and in the transverse colon, removed with a cold snare. Resected and retrieved. - Stool in the rectum, in the recto-sigmoid colon, in the sigmoid colon, in the descending colon, at the splenic flexure, in the transverse colon, at the hepatic flexure and in the cecum. - Non-bleeding internal hemorrhoids. Recommendations : - Repeat colonoscopy in 3 years for surveillance. - Continue present medications. My findings are described in the full procedure note, which is enclosed. If I can be of further assistance, please feel free to contact me at . Sincerely, Alan Leung, 08/14/2022 1:11:56 PM This report has been signed electronically.
== END 2022-08-14 14:15 | disposition home or self-care (01) ==
LOC: EN 10:43 → AC 10:45
PROVIDERS: PCP Internal Medicine; Referring Provider Internal Medicine; Visit Provider Internal Medicine Gastroenterology
PROC: 0DJD8ZZ Inspection of Lower Intestinal Tract, Via Natural or Artificial Opening Endoscopic (ICD-10-PCS; CPT 45378; principal; 2022-08-14 11:55)
DX: K22.2 Esophageal obstruction (principal); I48.91 Unspecified atrial fibrillation; K31.89 Other diseases of stomach and duodenum; K44.9 Diaphragmatic hernia without obstruction or gangrene; K20.91 Esophagitis, unspecified with bleeding; K64.1 Second degree hemorrhoids; K57.30 Diverticulosis of large intestine without perforation or abscess without bleeding; D12.3 Benign neoplasm of transverse colon; K29.50 Unspecified chronic gastritis without bleeding; K76.0 Fatty (change of) liver, not elsewhere classified; R73.03 Prediabetes; M51.34 Other intervertebral disc degeneration, thoracic region; I10 Essential (primary) hypertension; E55.9 Vitamin D deficiency, unspecified; Z79.899 Other long term (current) drug therapy; Z87.891 Personal history of nicotine dependence
CPT/HCPCS: 45385; 45380; 43248; 43239; 82962; 88305; 88313; 88342; J7120; J2405

== ENCOUNTER → 2022-10-25 | Outpatient (CLI) | payer MEDICARE, SELFPAY ==
--- NOTE | 2022-10-25 12:33 | BI_ITS ---
MAMMOGRAPHY - BILATERAL SCREENING REASON FOR EXAM: Female, 76 years old. Routine annual screening examination. PERTINENT HISTORY: Sister with breast cancer. Aunt with breast cancer. TECHNIQUE: Digital bilateral breast avel (3D mammographic acquisition) in the CC and MLO projections. 2-D mediolateral oblique (MLO) and craniocaudad (CC) views of both breasts were obtained. CAD: Full Field Digital Mammography with Computer Added Detection was performed. COMPARISON: Comparison is made with prior study March 11, 2022 and April 08, 2020. FINDINGS: Breast Composition: There are scattered areas of fibroglandular density. There are no dominant masses or suspicious calcifications. Stable 3 mm well-defined nodule in the central medial aspect of the right stable small benign appearing bilateral axillary lymph nodes. No other significant abnormalities are identified. There has been no significant change since the prior study. BI/SCRN MAMM (CAD)W/AVEL BILAT IMPRESSION: Stable bilateral screening mammogram. Yearly follow-up mammogram recommended. (A) ASSESSMENT CATEGORY: BIRADS Category 2: Benign. A letter regarding these results will be sent to the patient by the facility within 30 days. Approximately 10% of breast cancers are not detected by mammography. A normal mammogram should not delay biopsy of a clinically suspicious abnormality. [id number] Electronically Signed: Ryan Correia MD at 13:56 EDT ,
--- NOTE | 2022-10-25 12:52 | US_ITS ---
STUDY: THYROID ULTRASOUND REASON FOR EXAM: Female, 76 years old. Multiple thyroid nodules TECHNIQUE: Ultrasound evaluation of the thyroid was performed with real-time and static mercedes-scale imaging. COMPARISON: Comparison is made with prior study dated August 02, 2021. FINDINGS: RIGHT LOBE: The right lobe of the thyroid gland measures 4.3 cm x 1.8 cm x 1.5 cm. There is a heterogeneous echotexture. Multiple nodules are once again seen. They have a solid/cystic appearance. The largest nodule measures 1.4 cm x 1 cm x 1.2 cm. There has been no change. LEFT LOBE: The left lobe of the thyroid gland measures 3.6 cm x 2.4 cm x 1.7 cm. There is a heterogeneous echotexture. Once again, multiple solid/cystic nodules are seen. The largest nodule measures 1.9 cm x 1.8 cm x 1.4 cm. This is essentially unchanged. ISTHMUS: The isthmus measures 4.4 cm. The regional lymph nodes are normal. US/Thyroid IMPRESSION: Stable examination. Electronically Signed: Ryan Correia MD at 12:14 EDT ,
--- NOTE | 2022-10-25 13:18 | CDU_ITS ---
Reason For Study: left carotid stenosis Rt. Velocities/BP Lt. Velocities/BP Prox CCA 57.0/9.7 cm/sec. Prox CCA 65.7/11.6 cm/sec. Mid CCA 58.9/9.7 cm/sec. Mid CCA 60.4/9.9 cm/sec. Dist CCA 60.7/12.6 cm/sec. Dist CCA 68.3/9.9 cm/sec. Prox ICA 45.6/12.6 cm/sec. Prox ICA 43.4/15.1 cm/sec. Mid ICA 42.8/15.4 cm/sec. Mid ICA 58.7/18.6 cm/sec. Dist ICA 59.8/18.3 cm/sec. Dist ICA 38.2/13.3 cm/sec. Rt. ICA/CCA = 1.0. Lt. ICA/CCA = 1.0. Prox ECA 53.2/8.8 cm/sec. Prox ECA 49.1/6.4 cm/sec. Rt. Vert. 37.8/9.9 cm/sec. Lt. Vert. 28.2/5.5 cm/sec. Right Extracranial There is homogeneous, smooth atherosclerotic plaque noted in the right common carotid artery. There is heterogeneous, irregular atherosclerotic plaque noted in the right internal carotid artery. The right internal carotid artery is very tortuous. There is intimal thickening but no significant atherosclerotic plaque noted in the right external carotid artery. Antegrade flow is noted in the right vertebral artery. Left Extracranial There is homogeneous, smooth atherosclerotic plaque noted in the left common carotid artery. There is homogeneous, smooth atherosclerotic plaque noted in the left internal carotid artery. There is intimal thickening but no significant atherosclerotic plaque noted in the left external carotid artery. Antegrade flow is noted in the left vertebral artery. Procedure Carotid Duplex 13514. This is a Carotid Duplex examination using B-mode, color flow and specral Doppler. The exam was diagnostic. Exam performed in department. VL/Carotid Duplex Ultrasound Interpretation Summary Mild (<50%) stenosis right extracranial internal carotid. Mild (<50%) stenosis left extracranial internal carotid. Patent and antegrade vertebrals bilaterally. Ordering Physician: Na Valente Performed By: Fady Xiong RVT
== END | disposition home or self-care (01) ==
LOC: OPBI 12:32
PROVIDERS: PCP Internal Medicine; Referring Provider Internal Medicine; Visit Provider Internal Medicine
DX: Z12.31 Encounter for screening mammogram for malignant neoplasm of breast (principal); Z80.3 Family history of malignant neoplasm of breast; E04.2 Nontoxic multinodular goiter; I65.22 Occlusion and stenosis of left carotid artery
CPT/HCPCS: 76536; 77063; 77067; 93880

== ENCOUNTER → 2022-12-14 | Outpatient (CLI) | payer MEDICARE, SELFPAY ==
--- NOTE | 2022-12-14 08:17 | MRI_ITS ---
STUDY: MRI LEFT HIP REASON FOR EXAM: Female, 77 years old. abnormal xray and hip pain, r/o poss. hairline fx of acetabulum s -- hip pain, r/o poss. hairline fx of acetabulum shown on xray 11/20/ -- hip pain, r/o poss. hairline fx of acetabulum shown on xray 11/20/ TECHNIQUE: Standardized fat and water weighted pulse sequences were obtained in all 3 orthogonal planes. COMPARISON: Hip x-ray dated November 20, 2022 FINDINGS: No marrow edema or fracture or evidence of osteonecrosis is present in the hips or in the pelvic bony structures. No aggressive abdomen allergies are present. Small rest island of red marrow noted in the right subtrochanteric region of the femoral shaft which is of no clinical significance. A moderate sized linear tear is present in the left acetabular roof with a para labral cyst at the site of the torn labral tissue. There is mild articular narrowing of the hip joint, with less than 50% loss of the hyaline cartilage. Normal acetabulum. No edema or fracture line or callus formation is seen in the acetabulum on the left or right. No hip joint effusions are present. Normal femoral head. Normal femoral neck and intratrochanteric region. Normal gluteus minimus, medius and iliopsoas tendons and distal insertions. There is no trochanteric, iliopsoas or iliopectineal bursitis. Normal superior and inferior pubic rami. Normal pubic symphysis. Normal ischial tuberosity. Normal origin of the hamstring tendons. Normal visualized iliac wing, sacroiliac joint, and sacral ala. Significant rectosigmoid diverticulosis is present. Unremarkable remaining intrapelvic structures. Degenerative changes are seen in the lumbar spine. Small to moderate-sized left Bartholin''s gland cyst noted. MRI/Lower Ext Joint Only (Routine) IMPRESSION: 1. A moderate sized linear tear is present in the left acetabular roof with a para labral cyst at the site of the torn labral tissue. There is mild articular narrowing of the hip joint, with less than 50% loss of the hyaline cartilage. Normal acetabulum. No edema or fracture line or callus formation is seen in the acetabulum on the left or right. No hip joint effusions are present. Electronically Signed: Mak Jack MD at 14:27 EDT ,
== END | disposition home or self-care (01) ==
PROVIDERS: PCP Internal Medicine; Referring Provider Internal Medicine; Visit Provider Internal Medicine
DX: R93.7 Abnormal findings on diagnostic imaging of other parts of musculoskeletal system (principal)
CPT/HCPCS: 73721

== ENCOUNTER → 2023-03-27 | Outpatient (CLI) | payer MEDICARE, SELFPAY ==
[2023-03-27 11:47] LABS: Cholesterol 152 mg/dL (200); High Density Lipoprotein 41 mg/dL; Triglycerides 196 mg/dL; Very Low Density Lipoprotein 39 mg/dL (5-40)
== END | disposition home or self-care (01) ==
LOC: LAB 10:11
PROVIDERS: PCP Internal Medicine; Referring Provider Internal Medicine Cardiovascular Disease; Visit Provider Internal Medicine Cardiovascular Disease
DX: E11.9 Type 2 diabetes mellitus without complications (principal); I77.9 Disorder of arteries and arterioles, unspecified; I51.89 Other ill-defined heart diseases; R00.2 Palpitations
CPT/HCPCS: 36415; 80061

== ENCOUNTER → 2023-03-28 | Outpatient (CLI) | payer MEDICARE, SELFPAY | END | disposition home or self-care (01) | LOC: PSN 11:45 | PROVIDERS: PCP Internal Medicine; Referring Provider Internal Medicine; Visit Provider Internal Medicine | DX: I49.3 Ventricular premature depolarization (principal) | CPT/HCPCS: 93225; 93226 ==

== ENCOUNTER → 2023-05-30 | Outpatient (CLI) | payer MEDICARE, SELFPAY ==
--- NOTE | 2023-05-30 14:55 | STRESSREP ---
Stress Test Report Pharmacologic myocardial perfusion stress test. 77-year-old lady with a history of premature ventricular complexes for preop clearance. Resting EKG demonstrates sinus rhythm with a rate of 68 bpm. Resting blood pressure is 138/98 mmHg. 0.4 mg of regadenoson was infused per usual protocol followed by rapid intravenous saline flush injection. Continuous EKG monitoring was performed. The maximum heart rate was 83 bpm which was 58%of max impacted heart rate the maximum workload was 1 metabolic equivalent. At rest there were no ST or T wave changes noted to suggest ischemia and at peak infusion nonspecific ST changes were noted which did not meet the criteria for ischemia. No clinical angina is noted. The final blood pressure was 136/84mmHg. Myocardial perfusion protocol. 14.7 mCi of technetium 99m sestamibi was injected at rest. 0.4 mg of regadenoson was infused per usual protocol. At peak infusion 44.8 mCi of technetium 99m sestamibi was injected stress images were obtained stress and rest images were reconstructed and compared in the short axis vertical long and horizontal long axis. Gated images were also obtained. Perfusion SPECT analysis: Review of the stress images demonstrate normal uptake of tracer noted in all areas of the myocardium. The resting images similar demonstrated normal uptake of tracer noted in all areas of the myocardium. No areas of reversibility are noted to suggest ischemia and no previous infarct is noted. Conclusion: Normal pharmacologic myocardial perfusion stress test.
== END | disposition home or self-care (01) ==
PROVIDERS: PCP Internal Medicine; Referring Provider Internal Medicine; Visit Provider Internal Medicine
DX: I49.3 Ventricular premature depolarization (principal); R06.02 Shortness of breath
CPT/HCPCS: 78452; 93017; A9500; A4216; J2785

== ENCOUNTER 2023-08-12 12:22 | Emergency (ER) | payer MEDICARE, SELFPAY ==
[2023-08-12 12:23] VITALS: BP 181/94; PULSE 101; RESP 16; TEMP 36.6; O2SAT 95; BMI 31.4
--- NOTE | 2023-08-12 12:45 | RAD_ITS ---
EXAM: XR RIGHT WRIST COMPLETE, 3 OR MORE VIEWS CLINICAL INDICATION: Fall injury with bruising, pain and swelling TECHNIQUE: Frontal, lateral and oblique views of the right wrist. COMPARISON: No relevant prior studies available. FINDINGS: BONES/JOINTS: Pronounced degenerative osteoarthrosis of the carpometacarpal articulation of the right thumb. SOFT TISSUES: 5 mm sharp radiopaque foreign body in the medial soft tissues of the right wrist. No soft tissue swelling or gas. RAD/Wrist min 3 Views IMPRESSION: 1. No acute fracture or dislocation of the right wrist. 2. Pronounced degenerative osteoarthrosis of the carpometacarpal articulation of the right thumb. 3. 5 mm sharp radiopaque soft tissue foreign body medial to the right wrist. This may be glass. Electronically Signed: Kalyan Marrero MD at 13:22 EST ,
--- NOTE | 2023-08-12 12:45 | RAD_ITS ---
EXAM: XR RIGHT HAND COMPLETE, 3 OR MORE VIEWS CLINICAL INDICATION: Fall injury with bruising and pain. TECHNIQUE: Frontal, lateral and oblique views of the right hand. COMPARISON: No relevant prior studies available. FINDINGS: BONES/JOINTS: Pronounced degenerative osteoarthrosis of the carpometacarpal articulation of the right thumb. Diffuse narrowing of the DIP joints and PIP joints of the hand. No acute fracture. No subluxation. Normal alignment. No sclerotic or destructive changes observed. SOFT TISSUES: Soft tissue swelling overlying the dorsum of the hand. No radiopaque foreign body. RAD/Hand Min 3 Views IMPRESSION: 1. No acute fracture or dislocation of the right hand. 2. Pronounced degenerative osteoarthrosis of the carpometacarpal articulation of the right thumb and diffuse degenerative narrowing of the DIP joints and PIP joints of the right hand. Electronically Signed: Kalyan Marrero MD at 13:25 EST ,
--- NOTE | 2023-08-12 15:27 | EX.ED.UPPERE ---
HPI History of Present Illness Chief Complaint: Upper Extremity Injury Informant: patient and spouse/S.O. Narrative Narrative: [id number] female here with significant other seen in the waiting room due to busy department. Mechanical fall yesterday leaving a restaurant. Pain to the right wrist and hand. Increased swelling today. No anticoagulations. Patient states she slightly bumped right side of her head, no loss of conscious. Denies any headache or neck pain. No back pain. Prior similar symptoms: No PFSH PFSH Medical History Anxiety Aortic root dilatation Arm paresthesia, left Arthritis Asthma Back pain Back problem Bladder disease Chronic cough Colitis Colon polyp DDD (degenerative disc disease), thoracic Diabetes Diarrhea Diverticulitis Exophthalmia Fatigue Glaucoma History of atrial fibrillation History of diverticulitis History of echocardiogram Hyperglycemia Hyperkalemia Hypertension Kidney stones Left carotid stenosis Leg cramps Multinodular goiter Multiple lung nodules Non-smoker Osteopenia PVC (premature ventricular contraction) RLQ abdominal pain Slurred speech Urinary incontinence Vitamin D deficiency Wears contact lenses Home Medications amlodipine 5 mg tablet 5 mg PO DAILY #90 tabs 03/11/19 [History Last Taken 08/14/22 09:00] atenolol 25 mg tablet 25 mg PO DAILY 03/11/19 [History Last Taken 08/14/22 09:00] lisinopril 10 mg tablet 10 mg PO DAILY #90 tabs 03/11/19 [History Last Taken 08/14/22 09:00] montelukast 10 mg tablet 10 mg PO DAILY PRN ALLERGIES #90 tabs 03/11/19 [History Last Taken Unknown] cholestyramine (with sugar) 4 gram oral powder 1 ea PO DAILY 06/13/22 [History Last Taken Unknown] zinc 50 mg tablet 50 mg PO DAILY 08/08/22 [History Last Taken Unknown] ondansetron 4 mg disintegrating tablet 4 mg PO Q6H PRN nausea and vomiting #60 tabs 09/03/22 [Rx Last Taken Unknown] cholecalciferol (vitamin D3) 50 mcg (2,000 unit) capsule 4,000 unit PO DAILY 03/20/23 [History Last Taken Unknown] aspirin 81 mg tablet,delayed release 81 mg PO DAILY 03/27/23 [History Last Taken Unknown] cartilage 40 mg-collagen II 10 mg-boron 5 mg-hyaluronate 3.3 mg tablet 1 tab PO DAILY 03/27/23 [History Last Taken Unknown] pantoprazole 40 mg tablet,delayed release 40 mg PO DAILY 03/27/23 [History Last Taken Unknown] pantoprazole 20 mg tablet,delayed release 20 mg PO DAILY #30 tabs 04/03/23 [Rx Last Taken Unknown] Allergy/AdvReac Type Severity Reaction Status Date / Time corn Allergy Intermediate Abd Verified 08/12/23 12:23 cramps/diarrhea peanut Allergy Intermediate Nausea/Vom/ Verified 08/12/23 12:23 Diarrhea ibuprofen AdvReac Upset Verified 08/12/23 12:23 Stomach Family History Mother Arthritis Heart disease Hypertension Sister Breast cancer Father Prostate cancer Pancreatic cancer Brother Prostate cancer Surgical History History of ankle surgery History of bilateral cataract extraction History of surgical removal of lesion Hx of cholecystectomy Hx of colonoscopy Hx of hysterectomy Hx of rotator cuff surgery Status post biopsy of thyroid gland (~03/2019) Social History Smoking Status: Former smoker how long ago did patient quit smoking: college years second hand exposure: No alcohol intake: current alcohol intake frequency: a few times a month Alcohol type: wine substance use type: does not use caffeine: No what type of physical activity do you participate in: none frequency: does not exercise seatbelt use: always ROS ROS ED Constitutional Constitutional ED: Denies chills, fever(s) or sweats Eyes Eyes: Denies change in vision ENT ENT ED: Denies dysphagia or sore throat Cardiovascular Cardiovascular: Denies chest pain, leg edema, palpitations or racing heartbeat Respiratory/Chest Respiratory/Chest: Denies cough, dyspnea or dyspnea on exertion Gastrointestinal Gastrointestinal: Denies abdominal pain, diarrhea, nausea or vomiting Genitourinary Genitourinary ED: Denies dysuria, hematuria or urinary frequency Musculoskeletal Musculoskeletal: Reports extremity pain; Denies back pain or neck pain Integumentary Denies rash or wounds Neurologic Neurologic: Denies headache(s), paresthesias or weakness EXAM Physical Exam Const Vital Signs: 08/12/23 12:23 Temperature 97.8 F Temperature Source Temporal Pulse Rate 101 H Respiratory Rate 16 Blood Pressure 181/94 H Blood Pressure Mean 123 Pulse Ox 95 Positive well nourished and well developed Constitutional Narrative: GCS 15. General Appearance ED: well developed and NAD HEENT Reports moist mucous membranes normocephalic and atraumatic Eyes EOMs intact bilaterally and conjunctivae normal General Eye ED: Yes normal appearance of both eyes Neck full ROM, no lymphadenopathy and supple General: Negative for tenderness Chest Wall palpation of chest normal Chest: Negative for tenderness Resp normal respiratory effort and normal air movement Effort and Inspection: symmetric chest movement; Negative for respiratory distress Cardio regular rate, regular rhythm and no murmurs Peripheral Pulses: pulses 2+ throughout GI normal to inspection, nondistended, normoactive bowel sounds and non-tender Palpation: Negative for guarding or rebound tenderness present Back/Spine no CVA tenderness and no thoracic nor lumbar tenderness Extremity Extremity Narrative: Right upper extremity: No shoulder or elbow tenderness. Swelling distal forearm wrist and dorsal hand along with digits 3 through 5 on the proximal phalanx. Skin is all intact. Tenderness along the third and fifth metacarpals along with the distal radius. There is no deformities. General Extremety ED: Yes edema and tenderness General Extremity: edema Neuro oriented x3 and no sensory deficits noted Sensorium / Orientation: awake and alert Skin Skin Narrative: See above MDM MDM MDM Narrative Medical decision making narrative: Interventions / MDM: Differential diagnosis: Contusion Diagnosis considered but do not suspect: Fracture however x-ray negative. My EKG interpretation: N/A Imaging independently reviewed and interpreted by myself: 3 views right wrist: No fracture noted. There is soft tissue foreign body volar aspect distal radius. 3 views right hand: No fractures. Degenerative changes at the CMC joint of the first metacarpal. External documents reviewed: N/A Test considered but not ordered:N/A ED course: Patient's x-rays performed in triage interpreted myself and read by radiology no fractures noted there is noted soft tissue foreign body, however there is no puncture wounds from injury yesterday. Patient cannot recall any direct injuries. Likely remote foreign body, discussed findings with the patient. She is provided Velcro wrist splint for comfort discussed elevation she will use Tylenol 1 g every 6 hours as needed. She will follow-up with her PCP. All questions were answered. Re-evaluation: stable Disposition discussed with patient/family/significant other: Patient and significant other Case discussed with consulting clinician: N/A This note was generated with [employer] dictation software. It may contain incorrect words, spelling, and punctuation that were not noted in checking the note before signing. Radiography Diagnostic Testing: Clinical Impression(s) from Imaging Studies Hand X-Ray 08/12/23 12:45 IMPRESSION: 1. No acute fracture or dislocation of the right hand. 2. Pronounced degenerative osteoarthrosis of the carpometacarpal articulation of the right thumb and diffuse degenerative narrowing of the DIP joints and PIP joints of the right hand. Electronically Signed: Kalyan Marrero MD at 13:25 EST , Wrist X-Ray 08/12/23 12:45 IMPRESSION: 1. No acute fracture or dislocation of the right wrist. 2. Pronounced degenerative osteoarthrosis of the carpometacarpal articulation of the right thumb. 3. 5 mm sharp radiopaque soft tissue foreign body medial to the right wrist. This may be glass. Electronically Signed: Kalyan Marrero MD at 13:22 EST , Discharge Plan Triage Chief Complaint: Upper Extremity Injury ED Provider: Ramón Hennessy Dx/Rx/DC Orders Clinical Impression: Foreign body (FB) in soft tissue, Contusion of right wrist, initial encounter, Contusion of hand, left, Contusion of hand, right Instructions: ED Contusion, Upper Extremity, ED Foreign Body Soft Tissue Prescriptions: No Action atenolol 25 mg tablet 25 mg PO DAILY amlodipine 5 mg tablet 5 mg PO DAILY Qty: 90 lisinopril 10 mg tablet 10 mg PO DAILY Qty: 90 montelukast 10 mg tablet 10 mg PO DAILY PRN (Reason: ALLERGIES) Qty: 90 Rx Instructions: only takes in the summer cholecalciferol (vitamin D3) 50 mcg (2,000 unit) capsule 4,000 unit PO DAILY cholestyramine (with sugar) 4 gram powder 1 ea PO DAILY ondansetron 4 mg tablet,disintegrating 4 mg PO Q6H PRN (Reason: nausea and vomiting) Qty: 60 0RF pantoprazole 20 mg tablet,delayed release (DR/EC) 20 mg PO DAILY Qty: 30 5RF pantoprazole 40 mg tablet,delayed release (DR/EC) 40 mg PO DAILY aspirin 81 mg tablet,delayed release (DR/EC) 81 mg PO DAILY zinc 50 mg Tablet 50 mg PO DAILY [id number] 40-10-5-3.3 mg tablet 1 tab PO DAILY Primary Care Provider: Na Valente Referrals: Na Valente DO [Primary Care Provider] - 1-2 Weeks Activity Restrictions/Additional Instructions: X-ray right hand and wrist shows no fractures. There is soft tissue foreign body distal forearm volar aspect. You had no punctures of the skin therefore this foreign body was there previously. Nothing to do at this point. Use Tylenol 1 g every 6 hours as needed. Use a wrist splint for comfort. Continue to elevate. Follow-up with your doctor. Disposition Disposition: Home, Self Care Discharge Date/Time: 08/12/23 15:27
== END 2023-08-12 15:27 | disposition home or self-care (01) ==
LOC: ED 15:26
PROVIDERS: Emergency Provider Emergency Medicine; PCP Internal Medicine; Visit Provider Emergency Medicine
DX: S60.221A Contusion of right hand, initial encounter (principal); S60.211A Contusion of right wrist, initial encounter; S60.222A Contusion of left hand, initial encounter; S60.851A Superficial foreign body of right wrist, initial encounter; W18.39XA Other fall on same level, initial encounter; Y92.511 Restaurant or cafe as the place of occurrence of the external cause; Z18.81 Retained glass fragments; I10 Essential (primary) hypertension; Z79.82 Long term (current) use of aspirin; Z79.899 Other long term (current) drug therapy; Z87.891 Personal history of nicotine dependence
CPT/HCPCS: 73110; 73130; 99283

== ENCOUNTER 2023-10-04 10:11 | Emergency (ER) | payer MEDICARE, SELFPAY ==
[2023-10-04 10:12] VITALS: BP 139/83; PULSE 87; RESP 16; TEMP 36.7; O2SAT 96; BMI 34.4
--- NOTE | 2023-10-04 10:27 | RAD_ITS ---
STUDY: X-RAY - PELVIS AND LEFT HIP REASON FOR EXAM: Female, 77 years old. Left hip pain. No known injury. TECHNIQUE: views of the pelvis and hip. COMPARISON: None. FINDINGS: There is a non-specific bowel gas pattern. Normal visualized soft tissue structures. Normal bilateral iliac wings, sacroiliac joints and visualized sacrum. Normal bilateral superior and inferior pubic rami. There is narrowing with sclerosis of the pubic symphysis. Normal bilateral ischial tuberosities. Normal visualized femoral head. Normal acetabulum. There is mild articular joint space narrowing of the hip. RAD/HIP, UNI W/ Pelvis 2-3 Views IMPRESSION: Mild degree of joint space narrowing. No fracture or dislocation is seen. Electronically Signed: Ryan Correia MD at 11:08 EDT ,
--- NOTE | 2023-10-04 10:28 | ED.VIS.LOWEX ---
HPI History of Present Illness Chief Complaint: Lower Extremity Injury Informant: patient Narrative Narrative: 77-year-old female presenting with left hip pain. Pain is in her left low buttock coming around into her groin at x 2. At rest she does not have a lot of pain, maybe a 2/10, pain really is when she moves it or puts weight on it to the point where she is having trouble walking. She states she has a history of chronic issues with this hip, she saw Dr. Pinon 3 or 4 years ago and was sedated and had an injection in it which lasted for several months and really helped temporarily, she was told she may need a hip replacement. This pain is worse in the past 3-4 days, but otherwise the same location and type of pain. No fevers or chills. No falls or obvious reason for the flare. No numbness or tingling. No bowel or bladder dysfunction. Chronic low back pain is unchanged. [facility] Medical History Anxiety Aortic root dilatation Arm paresthesia, left Arthritis Asthma Back pain Back problem Bladder disease Chronic cough Colitis Colon polyp DDD (degenerative disc disease), thoracic Diabetes Diarrhea Diverticulitis Exophthalmia Fatigue Glaucoma History of atrial fibrillation History of diverticulitis History of echocardiogram Hyperglycemia Hyperkalemia Hypertension Kidney stones Left carotid stenosis Leg cramps Multinodular goiter Multiple lung nodules Non-smoker Osteopenia PVC (premature ventricular contraction) RLQ abdominal pain Slurred speech Urinary incontinence Vitamin D deficiency Wears contact lenses Home Medications amlodipine 5 mg tablet 5 mg PO DAILY #90 tabs 03/11/19 [History Last Taken 08/14/22 09:00] atenolol 25 mg tablet 25 mg PO DAILY 03/11/19 [History Last Taken 08/14/22 09:00] lisinopril 10 mg tablet 10 mg PO DAILY #90 tabs 03/11/19 [History Last Taken 08/14/22 09:00] montelukast 10 mg tablet 10 mg PO DAILY PRN ALLERGIES #90 tabs 03/11/19 [History Last Taken Unknown] cholestyramine (with sugar) 4 gram oral powder 1 ea PO DAILY 06/13/22 [History Last Taken Unknown] zinc 50 mg tablet 50 mg PO DAILY 08/08/22 [History Last Taken Unknown] ondansetron 4 mg disintegrating tablet 4 mg PO Q6H PRN nausea and vomiting #60 tabs 09/03/22 [Rx Last Taken Unknown] cholecalciferol (vitamin D3) 50 mcg (2,000 unit) capsule 4,000 unit PO DAILY 03/20/23 [History Last Taken Unknown] aspirin 81 mg tablet,delayed release 81 mg PO DAILY 03/27/23 [History Last Taken Unknown] cartilage 40 mg-collagen II 10 mg-boron 5 mg-hyaluronate 3.3 mg tablet 1 tab PO DAILY 03/27/23 [History Last Taken Unknown] pantoprazole 20 mg tablet,delayed release 20 mg PO DAILY #30 tabs 10/02/23 [Rx Last Taken Unknown] prednisone 20 mg tablet 40 mg (2 x 20 mg) PO DAILY #12 TABLETS 10/04/23 [Rx Last Taken Unknown] Allergy/AdvReac Type Severity Reaction Status Date / Time corn Allergy Intermediate Abd Verified 10/04/23 10:15 cramps/diarrhea peanut Allergy Intermediate Nausea/Vom/ Verified 10/04/23 10:15 Diarrhea ibuprofen AdvReac Upset Verified 10/04/23 10:15 Stomach Family History Mother Arthritis Heart disease Hypertension Sister Breast cancer Father Prostate cancer Pancreatic cancer Brother Prostate cancer Surgical History History of ankle surgery History of bilateral cataract extraction History of surgical removal of lesion Hx of cholecystectomy Hx of colonoscopy Hx of hysterectomy Hx of rotator cuff surgery Status post biopsy of thyroid gland (~03/2019) Social History Smoking Status: Current some day smoker tobacco type: cigarettes how long ago did patient quit smoking: college years second hand exposure: No alcohol intake: current alcohol intake frequency: a few times a month Alcohol type: wine substance use type: does not use caffeine: No what type of physical activity do you participate in: none frequency: does not exercise seatbelt use: always ROS ROS ED Constitutional Constitutional ED: Denies chills or fever(s) Musculoskeletal Musculoskeletal: Reports extremity pain; Denies neck pain Integumentary Denies Abrasions, rash or wounds Neurologic Neurologic: Denies paresthesias or weakness EXAM Physical Exam Const Vital Signs: 10/04/23 10:12 Temperature 98.1 F Temperature Source Temporal Pulse Rate 87 Respiratory Rate 16 Blood Pressure 139/83 H Blood Pressure Mean 101 Pulse Ox 96 Oxygen Delivery Method Room Air Positive well nourished, well developed and obese General Appearance ED: well developed and NAD Nutritional Appearance: obese Neck full ROM and supple Back/Spine normal ROM and normal to inspection Extremity full ROM Extremity Narrative: Patient with antalgic gait. Full range of motion of the left hip, no significant pain with passive internal and external rotation while sitting on the edge of the bed. Neurovascular tact distally. Negative straight leg raises. Tender in the external rotators mostly, but not the greater trochanter. Normal inspection no rash. Neuro oriented x3, no focal motor deficits and no sensory deficits noted Sensorium / Orientation: alert Psych mental status grossly normal and thought process normal Skin no wounds Rashes: no rashes MDM MDM MDM Narrative Medical decision making narrative: Three-view x-ray series of the left hip including the pelvis negative for anything acute. There is some joint space narrowing of the left hip, but no inflammatory sclerosis of the bone. Clinically, she really is not examining like an acute synovitis or septic arthritis. When I range her hip, she really does not have any significant discomfort, nor does she have an increase in her pain at all until she puts weight on it. Given this I do not think she needs blood work or any other emergent hip workup. She states that she is not a diabetic and I think reasonable to put her on a course of prednisone to see if that helps quiet it down until she can follow-up with orthopedics. She was offered a prescription for a walker but her states they have 1 at home she can use, and she already has tramadol to use for pain which she states helped prior to coming here. Radiography Diagnostic Testing: Clinical Impression(s) from Imaging Studies Hip/Pelvis X-Ray 10/04/23 10:27 IMPRESSION: Mild degree of joint space narrowing. No fracture or dislocation is seen. Electronically Signed: Ryan Correia MD at 11:08 EDT , Discharge Plan Triage Chief Complaint: Lower Extremity Injury ED Provider: Braydon Neil Dx/Rx/DC Orders Clinical Impression: Osteoarthritis of left hip Instructions: OA Hip Prescriptions: New prednisone 20 mg tablet 40 mg PO DAILY Qty: 12 0RF No Action atenolol 25 mg tablet 25 mg PO DAILY amlodipine 5 mg tablet 5 mg PO DAILY Qty: 90 lisinopril 10 mg tablet 10 mg PO DAILY Qty: 90 montelukast 10 mg tablet 10 mg PO DAILY PRN (Reason: ALLERGIES) Qty: 90 Rx Instructions: only takes in the summer cholecalciferol (vitamin D3) 50 mcg (2,000 unit) capsule 4,000 unit PO DAILY cholestyramine (with sugar) 4 gram powder 1 ea PO DAILY ondansetron 4 mg tablet,disintegrating 4 mg PO Q6H PRN (Reason: nausea and vomiting) Qty: 60 0RF aspirin 81 mg tablet,delayed release (DR/EC) 81 mg PO DAILY pantoprazole 20 mg tablet,delayed release (DR/EC) 20 mg PO DAILY Qty: 30 5RF zinc 50 mg Tablet 50 mg PO DAILY upcraswrn-jjnjitcc-jir-hyalur 40-10-5-3.3 mg tablet 1 tab PO DAILY Primary Care Provider: Na Valente Referrals: Na Valente DO [Primary Care Provider] - Santiago Pinon MD [Med Staff - Active Staff] - As soon as possible Disposition Disposition: Home, Self Care
[2023-10-04] MEDS: predniSONE 20 MG Tablet 40 MG PO (11:33)
[2023-10-04 11:36] VITALS: BP 134/78; PULSE 86; RESP 18; TEMP 36.6; O2SAT 96
== END 2023-10-04 11:52 | disposition home or self-care (01) ==
PROVIDERS: Emergency Provider Emergency Medicine; PCP Internal Medicine; Visit Provider Emergency Medicine
DX: M16.12 Unilateral primary osteoarthritis, left hip (principal); F17.210 Nicotine dependence, cigarettes, uncomplicated; J45.909 Unspecified asthma, uncomplicated; E66.9 Obesity, unspecified
CPT/HCPCS: 73502; 99282

== ENCOUNTER → 2023-10-21 | Outpatient (CLI) | payer MEDICARE, SELFPAY ==
--- NOTE | 2023-10-21 08:31 | MRI_ITS ---
HISTORY: Low back pain, left hip pain, radiculopathy. TECHNIQUE: Multiplanar and multisequence MR images of the lumbar spine were obtained without intravenous contrast. 218 images. COMPARISON: XR 10/16/2023, MR 01/25/2023. FINDINGS: VERTEBRAE: Vertebral body heights maintained. Mild degenerative bone marrow endplate changes. 1.2 cm Schmorl''s node at the lower S2 level again seen. ALIGNMENT: No anterior or posterior subluxation. Chronic mild dextroscoliosis. CONUS: Normal morphology and position of the conus medullaris at L1. INTERVERTEBRAL DISCS: T12-L1: Right paracentral disc protrusion with minimal narrowing of the thecal sac and right foramen again seen. L1-2: No significant posterior disc protrusion, central canal stenosis, or foraminal narrowing. L2-3: Mild posterior disc bulge osteophyte complex resulting in minimal narrowing of the thecal sac and mild left foraminal narrowing, similar to prior. L3-4: Mild posterior disc bulge osteophyte complex with facet arthropathy resulting in mild central canal stenosis, moderate left foraminal narrowing with left L3 nerve root abutment, and mild right foraminal narrowing again seen. L4-5: Mild posterior disc bulge osteophyte complex with facet arthropathy resulting in mild central canal stenosis, moderate left, and mild right foraminal narrowing similar to prior. L5-S1: Mild posterior disc protrusion with facet arthropathy resulting in minimal narrowing of the thecal sac and mild right foraminal narrowing similar prior. SOFT TISSUES: Mild posterior subcutaneous edema. Small left renal cyst again seen. Colonic diverticulosis observed. MRI/Spine Lumbar (Routine) IMPRESSION: Multilevel degenerative disc disease of the lumbar spine as above, similar to prior. Electronically Signed: Laurie Martinez MD at 16:02 EDT ,
== END | disposition home or self-care (01) ==
LOC: MRI 12:06
PROVIDERS: PCP Internal Medicine; Referring Provider Orthopaedic Surgery Orthopaedic Surgery of the Spine; Visit Provider Orthopaedic Surgery Orthopaedic Surgery of the Spine
DX: M54.50 Low back pain, unspecified (principal)
CPT/HCPCS: 72148

== ENCOUNTER → 2023-10-29 | Outpatient (CLI) | payer MEDICARE, SELFPAY ==
--- NOTE | 2023-10-29 09:39 | US_ITS ---
STUDY: ABDOMINAL ULTRASOUND - ELASTOGRAPHY REASON FOR VISIT: Female, 77 years old. Fatty liver. TECHNIQUE: Sonographic evaluation of the right upper quadrant. Liver stiffness measurements were obtained on a [employer] RS 85 ultrasound machine using a CA 1-7 probe following the SRU guidelines. 3 measurements were obtained using a 2-D-SWE method. TheIQR/M was 12% suggesting a quality data set. TECHNICAL QUALITY: Adequate. COMPARISON: Prior study dated: 08/06/2022 FINDINGS: LIVER: The liver is enlarged measuring 21.5 cm in CC dimension. There is increased hepatic echogenicity. Median liver stiffness measured 6.6 kPa. No focal hepatic lesion. No intrahepatic biliary ductal dilatation. There is no free fluid. GALLBLADDER AND BILIARY TREE: Cholecystectomy. The proximal common bile duct measures 0.6 cm, which is within normal limits for the patient''s age. PANCREAS: No focal abnormality is demonstrated in the pancreas. No pancreatic ductal dilatation. RIGHT KIDNEY: The right kidney measures 11.7 cm. No hydronephrosis. 0.3 cm mid pole calculus. No renal mass. US/ABD Limited w/ Elastography IMPRESSION: Liver stiffness measures 6.6 kPa compatible with F2-F3 (Mild to moderate liver fibrosis) Metavir score. Hepatomegaly with hepatic steatosis. Nonobstructing right renal calculus. Electronically Signed: Justino Garcia MD at 22:06 EDT ,
--- NOTE | 2023-10-29 09:43 | US_ITS ---
STUDY: THYROID ULTRASOUND REASON FOR EXAM: Female, 77 years old. multiple thyroid nodules -- due in October TECHNIQUE: Ultrasound evaluation of the thyroid was performed with real-time and static mercedes-scale imaging. COMPARISON: Thyroid ultrasound dated October 25, 2022 FINDINGS: RIGHT LOBE: The right lobe of the thyroid gland measures 4.6 x 1.8 x 2.4 cm, previously measuring 4.3 x 1.8 x 1.5 cm. There is a heterogeneous echotexture. Diffuse nodularity and small parenchymal cysts redemonstrated with 4 dominant nodules primarily in the midpole measuring 8 mm, 1.2 cm, 1 cm, and 1.3 cm maximally. No significant interval change from the prior study. LEFT LOBE: The left lobe of the thyroid gland measures 3.9 x 2.0 x 1.8 cm, previously measuring 3.6 x 2.4 x 1.7 cm. There is a heterogeneous echotexture. Diffusely heterogeneous and nodular parenchyma without interval change from the prior study with 3 dominant nodules in the inferior and superior pole measuring 1.6 cm, 1.0 cm, and 1.0 cm, without significant interval change from the prior study. ISTHMUS: The isthmus measures 4 mm. The findings are compatible with multinodular goiter. US/Thyroid IMPRESSION: 1. Multinodular goiter. 2. TR2: 2 points = not suspicious. TR2: no FNA required ACR Thyroid Imaging Reporting and Data System (ACR TI-RADS) Reference: COMPOSITION (choose 1): Cystic or almost completely cystic - 0 points Spongiform- 0 points Mixed cystic and solid - 1 point Solid almost completely solid - 2 points ECHOGENICITY (choose 1): Anechoic space - 0 points Hyperechoic or isoechoic-1 point Hypoechoic-2 points Very hypoechoic-3 points SHAPE (choose 1): : Wider than tall-0 points Taller than wide-3 points MARGINS ( smooth, lobular, ill-defined) ECHOGENIC FOCI (macro or microcalcifications) Scoring and classification TR1: 0 points = benign TR2: 2 points = not suspicious TR3: 3 points = mildly suspicious TR4: 4-6 points = moderately suspicious TR5: ?7 points = highly suspicious Recommendations TR1: no FNA required TR2: no FNA required TR3: ?1.5 cm follow up, ?2.5 cm FNA = follow up: 1, 3 and 5 years TR4: ?1.0 cm follow up, ?1.5 cm FNA = follow up: 1, 2, 3 and 5 years TR5: ?0.5 cm follow up, ?1.0 cm FNA = annual follow up for up to 5 years FNA biopsy is recommended for suspicious lesions (TR3-TR5) with the above size criteria. If there are multiple nodules, the two with the highest ACR TI-RADS scores should be sampled (rather than the two largest), with largest size being used a tie-breaker if there are multiple nodules of the same classification. Electronically Signed: Mak Jack MD at 13:14 EDT Reading Location ID and State: [facility] / [place] , Service support ,
== END | disposition home or self-care (01) ==
PROVIDERS: PCP Internal Medicine; Referring Provider Internal Medicine Gastroenterology; Visit Provider Internal Medicine Gastroenterology
DX: E04.2 Nontoxic multinodular goiter (principal); K76.0 Fatty (change of) liver, not elsewhere classified
CPT/HCPCS: 76536; 76705; 76981

== ENCOUNTER → 2023-11-01 | Outpatient (CLI) | payer MEDICARE, SELFPAY ==
--- NOTE | 2023-11-01 08:54 | CDU_ITS ---
Reason For Study: CAROTID STENOSIS Rt. Velocities/BP Lt. Velocities/BP Prox CCA 49.4/6.6 cm/sec. Prox CCA 71.4/17.6 cm/sec. Mid CCA 59.0/11.9 cm/sec. Mid CCA 64.8/16.6 cm/sec. Dist CCA 59.0/11.9 cm/sec. Dist CCA 55.4/12.8 cm/sec. Prox ICA 47.6/12.7 cm/sec. Prox ICA 63.9/14.7 cm/sec. Mid ICA 86.5/22.3 cm/sec. Mid ICA 67.6/23.2 cm/sec. Dist ICA 79.0/26.1 cm/sec. Dist ICA 40.1/14.2 cm/sec. Rt. ICA/CCA = 86.5/49.4=1.8. Lt. ICA/CCA = 67.6/64.8=1.0. Prox ECA 41.5/4.9 cm/sec. Prox ECA 43.1/5.3 cm/sec. Rt. Vert. 61.0/13.8 cm/sec. Lt. Vert. 37.4/7.2 cm/sec. Right Extracranial There is homogeneous, smooth atherosclerotic plaque noted in the right common carotid artery. There is heterogeneous, irregular atherosclerotic plaque noted in the right internal carotid artery. The tortuous nature of the right internal carotid artery may result in flow velocities overestimating the degree of stenosis. There is intimal thickening but no significant atherosclerotic plaque noted in the right external carotid artery. Antegrade flow is noted in the right vertebral artery. Left Extracranial There is homogeneous, smooth atherosclerotic plaque noted in the left common carotid artery. There is homogeneous, smooth atherosclerotic plaque noted in the left internal carotid artery. The left internal carotid artery is very tortuous. There is intimal thickening but no significant atherosclerotic plaque noted in the left external carotid artery. Antegrade flow is noted in the left vertebral artery. Procedure Carotid Duplex 99292. This is a Carotid Duplex examination using B-mode, color flow and specral Doppler. The study was technically difficult. Exam performed in department. VL/Carotid Duplex Ultrasound Interpretation Summary Mild (<50%) stenosis right extracranial internal carotid. Mild (<50%) stenosis left extracranial internal carotid. Patent and antegrade vertebrals bilaterally. Ordering Physician: Na Valente Referring Physician: Na Valente Performed By: Catherine Alcantara, BUBBA, RVT
== END | disposition home or self-care (01) ==
PROVIDERS: PCP Internal Medicine; Referring Provider Internal Medicine; Visit Provider Internal Medicine
DX: I65.22 Occlusion and stenosis of left carotid artery (principal)
CPT/HCPCS: 93880

== ENCOUNTER → 2023-11-14 | Outpatient (CLI) | payer MEDICARE, SELFPAY ==
--- NOTE | 2023-11-14 09:40 | BI_ITS ---
MAMMOGRAPHY - BILATERAL SCREENING REASON FOR EXAM: Female, 77 years old. Routine annual screening examination. PERTINENT HISTORY: Sister with breast cancer. Aunt with breast cancer. TECHNIQUE: Digital bilateral breast avel (3D mammographic acquisition) in the CC and MLO projections. 2-D mediolateral oblique (MLO) and craniocaudad (CC) views of both breasts were obtained. CAD: Full Field Digital Mammography with Computer Added Detection was performed. COMPARISON: Comparison is made with prior study October 25, 2022 and July 12, 2021. FINDINGS: Breast Composition: There are scattered areas of fibroglandular density. There are no dominant masses or suspicious calcifications. Stable 3 mm well-defined nodule in the central medial aspect of the right breast. Stable fat-containing bilateral axillary lymph nodes. No other significant abnormalities are identified. There has been no significant change since the prior study. BI/SCRN MAMM (CAD)W/AVEL BILAT IMPRESSION: Stable bilateral screening mammogram. Yearly follow-up mammogram recommended. (A) ASSESSMENT CATEGORY: BIRADS Category 2: Benign. A letter regarding these results will be sent to the patient by the facility within 30 days. Approximately 10% of breast cancers are not detected by mammography. A normal mammogram should not delay biopsy of a clinically suspicious abnormality. [id number] Electronically Signed: Ryan Correia MD at 11:21 EDT ,
--- NOTE | 2023-11-14 10:00 | BD_ITS ---
STUDY: DUAL ENERGY X-RAY ABSORPTIOMETRY / DXA REASON FOR EXAM: Female, 77 years old. [id number] TECHNIQUE: Bone Mineral Density (BMD) measurements of lumbar spine and bilateral hips were obtained. COMPARISON: Comparison is made with prior study of May 11, 2022. FINDINGS: Lumbar Spine (L1-L4): g/cm2 (0.955) / T-score (-0.6) / Z-score (2.0) Findings are suggestive of normal bone density with a low fracture risk. Left Femur Total: g/cm2 (0.903) / T-score (-0.3) / Z-score (1.7) Left Femoral Neck: g/cm2 (0.649) / T-score (-1.8) / Z-score (0.5) Right Femur Total: g/cm2 (0.826) / T-score (-1.0) / Z-score (1.0) Right Femoral Neck: g/cm2 (0.609) / T-score (-2.2) / Z-score (0.1) The T-Scores on the most recent prior examination were: Lumbar Spine (L1-L4): There has been improvement of bone density since the previous examination. Left Femur Total: which represents an improvement of 2.2%. Right Femur Total: which represents a worsening of 7.5%. BD/Dexa Bone Density Study IMPRESSION: The patient is considered osteopenic as outlined below according to World Wood Organization (WHO) criteria with a high fracture risk. There has been improvement of bone density since the previous examination. Reference Information: The T-score is the number of standard deviations above or below the standard which is normal for young adults at their peak bone mineral density. The World Health Organization (WHO) interprets the T-scores as follows: Above -1 Normal bone density Between -1 and -2.5 Osteopenia Equal to / or below -2.5 Osteoporosis As a practical clinical guideline, osteopenia may be graded as follows: Mild -1 through -1.5 Moderate -1.6 through -2.0 Severe -2.1 through -2.4 The Z-score is the number of standard deviations above or below age-matched controls. A Z-score of less than -1.5 would be considered abnormal. References: 1. NIH Osteoporosis and Related Bone Diseases www osteo.org 2. International Society for Clinical Densitometry www iscd.org 3. National Osteoporosis Foundation www nof.org Electronically Signed: Ryan Correia MD at 14:43 EDT ,
== END | disposition home or self-care (01) ==
LOC: OPBD 09:37
PROVIDERS: PCP Internal Medicine; Referring Provider Internal Medicine; Visit Provider Internal Medicine
DX: Z12.31 Encounter for screening mammogram for malignant neoplasm of breast (principal); Z78.0 Asymptomatic menopausal state
CPT/HCPCS: 77063; 77067; 77080

== ENCOUNTER 2024-01-07 10:30 | Outpatient (RCR) | payer MEDICARE, SELFPAY ==
--- NOTE | 2023-11-13 11:23 | HP.PTEVAL ---
Patient's Visit Information Visit Information Visit Information: SAWYER MAJANO is a 77 year old F referred to Physical Therapy by Dr. Maximiliano Rene MD with a diagnosis of Lumbar radiculopathy. Date of Evaluation: 11/13/23 Physical Therapist: Nilesh Wood DPT Visit Plan Frequency: 1-2x /Week Duration: 6 Weeks Plan: Start with US and manual to L paraspinals add in light flexion based exercises to reduce symptoms. Neutral spine core stability exercises. I did talk to her about the pool to reduce stress to lumbar spine with activities, but patient wanted to trial land based exercises first. Subjective Subjective: Pt. is here today for her initial evaluation with diagnosis of lumbar radiculopathy. Pt. reports having increased pain for a while now, but a few weeks ago she has such intense pain that she had to go to the ER. Pt. was seeing a different physician whom suggested a spinal stimulator, but patient declined. Pt. has tried PT at alternate facility working mostly on machines with focus on core and BLE strengthening. She has had previous epidural injections which helped in the past, but has not had any for this episode. Pt. likes to garden and would like to get back to this. She reports stiffness in the AMs and does feel a little better with increased mobility. Pt. is hopeful to get back to all gardening and household activities without increased pain. Pain L parapsinals: Pain Intensity (Out of 10): 4 Pain Intensity Range: 2 and 8 LLE: Pain Intensity (Out of 10): 4 Pain Intensity Range: 2 and 6 Objective Objective: POSTURE: Pt. has slight flexed posture and increased lateral trunk lean. PALPATION: Pt. has marked tenderness along L paraspinals of lumbar spine. Marked hypomobility with spring testing of Lumbar spine with increased pain at L3-S1 regions. No peripheralization of symptoms with PAs. NEURO: Pt. has normal sensation in BLEs. Pt. has normal DTR of BLEs. Pt. is able to rise on heels and toes without LOB. ROM: LUMBAR SPINE: flexion nil/min loss increase NW, exte mod loss increase NW, SB R min loss NE, SB L min loss increase NW, rotation min loss bilat but increase NW with rotation to L. Pt. has tightness in B HS as well. MMT: Pt. has decreased LLE strength 4+/5 with hip and knee flexion. 5/5 and symmetrical with rest of testing. GAIT: Pt. ambulates without AD, but has minimal trunk arm with and minimal trunk sway, signs of guarding. Increased pain noted with standing and walking, increased trunk flexion during walking noted. Special Tests L/S Slump test left side: Positive L/S Slump test right side: Negative L/S Left Straight Leg Raise: Negative L/S Right Straight Leg Raise: Negative Lumbar Standing: Flexion - Mechanical Response: No effect Lumbar Standing: Flexion - Symptoms During Testing: No effect Lumbar Standing: Flexion - Symptoms After Testing: No effect Lumbar Standing: Extension - Mechanical Response: No effect Lumbar Standing: Extension - Symptoms During Testing: No effect Lumbar Standing: Extension - Symptoms After Testing: No effect Lumbar Standing: Right Side Glides - Mechanical Response: No effect Lumbar Standing: Right Side [place] - Symptoms During Testing: No effect Lumbar Standing: Right Side [place] - Symptoms After Testing: No effect Lumbar Standing: Left Side [place] - Mechanical Response: No effect Lumbar Standing: Left Side [place] - Symptoms During Testing: Increases Lumbar Standing: Left Side [place] - Symptoms After Testing: No worse Lumbar Lying: Flexion - Mechanical Response: No effect Lumbar Lying: Flexion - Symptoms During Testing: Decreases Lumbar Lying: Flexion - Symptoms After Testing: Better Lumbar Lying: Extension - Mechanical Response: No effect Lumbar Lying: Extension - Symptoms During Testing: Increases Lumbar Lying: Extension - Symptoms After Testing: No worse Balance/Special Test Scores Oswestry Low Back Score: 20 Goals Goal 1:: LTG: Pt. to be I with HEP for LE and core strengthening. Goal Time Frame: 4-6 Weeks Goal 2:: STG: Pt. to have increased lumbar spine ROM by 25% in all directions without increase in symptoms. Goal Time Frame: 2-4 Weeks Goal 3:: LTG: Pt. to be able to walk 300'+ with out increase in LBP or LLE pain. Goal Time Frame: 4-6 Weeks Goal 4:: LTG: Pt. to have no distal LLE pain with all walking and recreational activities. Goal Time Frame: 4-6 Weeks Goal 5:: LTG: Pt. to have increased core to fair and LLE strength symmetrical to RLE. Goal Time Frame: 4-6 Weeks Rehabilitation Potential Physical Therapy Diagnosis: Pt. has signs and symptoms consistent with L lumbar radiculopathy. Pt. did have a slight improvement in symptoms with trunk flexion, but I am a little hesitant to progress flexion exercises due to osteopenia, possible osteoporosis. Pt. has marked limited trunk ROM and core weakness. I would like to use modalities to reduce symptoms then progress neutral spine core stability. Rehabilitation Potential: Good Anticipated Interventions Patient/Client Instruction: Educate patient on: Condition, Plan of Care, Risk Factors and Benefits of Fitness Program For the Purpose of:: To facilitate caregiver knowledge, To improve self management, To prevent re-injury, To improve ability to perform tasks related to life management and To improve tolerance to ADL's Therapeutic Exercise to Include: Strength training, Power training, Coordination, Body mechanics, Postural training, Flexibilty training and Dynamic Lumbar Stabilization For the Purpose of:: To decrease pain, To increase ROM, To improve nutrient delivery to tissue, To increase oxygenation perfusion, To improve muscle performance and motor function, To improve ability to perform ADL's, To increase tolerance to activity/condition/position, To improve performance and independence with ADL's, To decrease level of supervision to perform tasks and To improve ability of physical actions for home/community/work/leisure Manual Therapy Techniques to Include: Mobilization and Soft tissue mobilization For the Purpose of:: To decrease pain, To increase ROM, To improve nutrient delivery to tissue, To increase oxygenation perfusion and To improve muscle performance and motor function Text: Thank you for the opportunity to evaluate your patient. For Medicare and Medicare HMO plans, please review the plan of care and approve it. It will need to be FAXED BACK to us at [phone] for Medicare purposes. For Medicare only, by signing this I certify the plan of care. Please let me know if there are questions or concerns regarding this plan of care. Physician Signature: Date:
--- NOTE | 2024-01-07 11:50 | HP.PTREVAL ---
Re-Evaluation Intro: Dr. Maximiliano Rnee MD, It has been my pleasure to treat SAWYER MAJANO over the last 9 visits for Lumbar radiculopathy. Please see the progress note below for an update on the physical therapy plan of care! Subjective Subjective: Pt. reports being 50% better overall. Her pain is now 4/10 in her L side of her lumbar spine. She does report that her legs feel weaker and at times she feels like her L leg might give out on her. This has not happened, but it has felt like it. She reports being HEP compliant and feels like PT has been helpful. Objective Objective/Function: Pt. does have some pain that extends down her L anterior thigh. Pt. ambulated 350' with some mild increase in L sided low back pain, a gradual increase in symptoms. No distal symptoms. MMT: RLE: ankle 5/5 throughout; knee: ext 21.3#, flexion 17.1#; hip: flexion 19.7#. LLE: ankle 5/5 throughout; knee: ext 13.1#, flexion 11.3#; hip: flexion 13.1# Core strenght: poor+. GAIT: Pt. is ambulating better with decreased lateral hip sway. Plan Plan Plan: Cont. to see patient for another 4 visits. She is going on vacation for 2 weeks. Progress to core and LE strengthening including quad, glute and glute med. May use US if needed for pain control. Balance/Gait/Functional tests Balance/Special Test Scores Oswestry Low Back Score: 24 Goals Goals Goal 1:: LTG: Pt. to be I with HEP for LE and core strengthening. Goal Time Frame: 4-6 Weeks Goal 2:: STG: Pt. to have increased lumbar spine ROM by 25% in all directions without increase in symptoms. Goal Time Frame: 2-4 Weeks Goal 3:: LTG: Pt. to be able to walk 300'+ with out increase in LBP or LLE pain. Goal Time Frame: 4-6 Weeks Goal 4:: LTG: Pt. to have no distal LLE pain with all walking and recreational activities. Goal Time Frame: 4-6 Weeks Goal Progress: Progressing Goal 5:: LTG: Pt. to have increased core to fair and LLE strength symmetrical to RLE. Goal Time Frame: 4-6 Weeks Anticipated Interventions Anticipated Interventions Patient/Client Instruction: Educate patient on: Condition, Plan of Care, Risk Factors and Benefits of Fitness Program For the Purpose of:: To facilitate caregiver knowledge, To improve self management, To prevent re-injury, To improve ability to perform tasks related to life management and To improve tolerance to ADL's Therapeutic Exercise to Include: Strength training, Power training, Coordination, Body mechanics, Postural training, Flexibilty training and Dynamic Lumbar Stabilization For the Purpose of:: To decrease pain, To increase ROM, To improve nutrient delivery to tissue, To increase oxygenation perfusion, To improve muscle performance and motor function, To improve ability to perform ADL's, To increase tolerance to activity/condition/position, To improve performance and independence with ADL's, To decrease level of supervision to perform tasks and To improve ability of physical actions for home/community/work/leisure Manual Therapy Techniques to Include: Mobilization and Soft tissue mobilization For the Purpose of:: To decrease pain, To increase ROM, To improve nutrient delivery to tissue, To increase oxygenation perfusion and To improve muscle performance and motor function Re-Evaluation Ending Re-evaluation ending: Please do not hesitate to contact me at [phone] by phone or if you have questions or concerns regarding this new plan of care! Sincerely, Nilesh Wood DPT
== END 2024-01-07 19:00 | disposition home or self-care (01) ==
LOC: PT 10:30
PROVIDERS: PCP Internal Medicine; Referring Provider Orthopaedic Surgery Orthopaedic Surgery of the Spine; Visit Provider Orthopaedic Surgery Orthopaedic Surgery of the Spine
DX: M54.16 Radiculopathy, lumbar region (principal)
CPT/HCPCS: 97035; 97110; 97140; 97161; 97530

== ENCOUNTER → 2024-03-10 | Outpatient (CLI) | payer MEDICARE, SELFPAY ==
[2024-03-10 15:24] LABS: Absolute Lymphocyte Count 1.27 X10^3/uL (0.83-4.51); Basophil# 0.05 X10^3/uL; Basophil% 0.6 % (0-1); Eosinophil# 0.09 X10^3/uL; Eosinophils% 1.1 % (0-5); Hematocrit 45.8 % (37-47); Hemoglobin 14.8 g/dL (12.0-15.0); Lymphocyte # 1.27 X10^3/ul (0.83-4.51); Lymphocyte % 15.8 % (19-41); Mean Corp Hgb Conc 32.3 g/dL (32-36); Mean Corpuscular Hgb 30.2 pg (27.0-32.0); Mean Corpuscular Volume 93.5 fL (81-99); Mean Platelet Vol. 11.6 fl (6.2-12.0); Monocyte# 0.56 X10^3/uL; NRBC Flagged by Analyzer 0 % (0-5); Neutrophil # 6.01 X10^3/uL (2.7-7.7); Platelet Count 228 K/mm3 (150-450); RBC Distribution Width CV 13.2 % (11.6-14.6); RBC Distribution Width SD 44.8 fl (35.1-43.9)
[2024-03-10 15:44] LABS: Hemoglobin A1c 6.7 % (3.8-5.6)
[2024-03-10 16:03] LABS: ALB/GLOB Ratio 1.2 RATIO (0.9-2.4); AST(SGOT) 21 U/L (15-37); Alanine Aminotransfer ALT/SGPT 27 U/L (13-56); Albumin, Serum 3.7 g/dL (3.2-5.0); Alkaline Phosphatase 75 U/L (45-117); Anion Gap 8 (5-15); BUN 21 mg/dL (7-18); BUN/Creat Ratio 24.9 RATIO (10-20); Calcium,Total 9.4 mg/dL (8.5-10.1); Chloride 106 mmol/L (98-107); Cholesterol 161 mg/dL (200); Creatinine, Serum 0.84 mg/dL (0.55-1.02); EST Glomerular Filtration Rate 69 mL/min (>60); Est Glom Filt Rate - Afr Amer 84 mL/min (>60); Globulin 3.2 g/dL (2.2-4.2); Glucose 154 mg/dL (74-106); High Density Lipoprotein 44 mg/dL; Protein, Total 6.9 g/dL (6.4-8.2); Sodium Level 140 mmol/L (136-145); Triglycerides 188 mg/dL; Very Low Density Lipoprotein 38 mg/dL (5-40)
[2024-03-10 16:20] LABS: Microalbumin,Random Urine 21.7 mg/L (NO RANGE EST.); Microalbumin:Creatinine Ratio 9.9 mg/g CRE (<30 mg/g CRE)
== END | disposition home or self-care (01) ==
PROVIDERS: PCP Internal Medicine; Referring Provider Internal Medicine Gastroenterology; Visit Provider Internal Medicine Gastroenterology
DX: E55.9 Vitamin D deficiency, unspecified (principal); E11.65 Type 2 diabetes mellitus with hyperglycemia; R30.0 Dysuria; I11.9 Hypertensive heart disease without heart failure; I65.22 Occlusion and stenosis of left carotid artery
CPT/HCPCS: 36415; 80053; 80061; 82043; 82306; 82570; 83036; 85025; 87077; 87086; 87088; 87186

== ENCOUNTER → 2024-07-13 | Outpatient (CLI) | payer MEDICARE, SELFPAY ==
--- NOTE | 2024-07-13 09:29 | US_ITS ---
PROCEDURE: ABD LIMITED W/ ELASTOGRAPHY REASON FOR EXAM: Fatty infiltration of the liver. COMPARISON: Comparison is made with prior examination dated October 31, 2022. TECHNIQUE: Right upper quadrant abdominal ultrasound. YouView ElastQ Imaging shear wave elastography for non-invasive assessment of liver tissue stiffness. Mary EPIQ Elite. FINDINGS: LIVER: Size: Enlarged (hepatomegaly) Length: 19.8 cm Echotexture: Diffusely echogenic suggesting fatty infiltration Contour: Normal Lesions: None identified Elastography: EQI Med: 6.6 kPa EQI Med Virgilio: 1.46 m/s GALLBLADDER: Surgically absent. COMMON BILE DUCT: Slightly dilated measuring 10 mm. . PANCREAS: Normal Visualized portions of the right kidney are unremarkable. No right upper quadrant ascites. Findings suggestive of 2 tiny nonobstructive right intrarenal calculi. US/ABD Limited w/ Elastography IMPRESSION: NO TO MILD HEPATIC FIBROSIS Reference Values: SRU <1.37 m/s (5.7kPa): No to mild fibrosis 1.37 m/s - 2.2 m/s: Moderate to severe fibrosis >2.2 m/s (15kPa): Significant fibrosis / cirrhosis METAVIR Score F2 or higher: 1.34 m/s (5.7kPa) F3 or higher: 1.55 m/s (7.3kPa) F4: 1.80 m/s (10kPa) * If the IQR/Med is >30%, the variance in the measurements is a large and the a ccuracy of the measurement may be in question. Reading Location: [place] [id number]
== END | disposition home or self-care (01) ==
LOC: US 09:28
PROVIDERS: PCP Internal Medicine; Referring Provider Internal Medicine Gastroenterology; Visit Provider Internal Medicine Gastroenterology
DX: K76.0 Fatty (change of) liver, not elsewhere classified (principal)
CPT/HCPCS: 76705; 76981

== ENCOUNTER → 2024-10-02 | Outpatient (CLI) | payer MEDICARE, SELFPAY ==
--- NOTE | 2024-10-02 16:12 | MRI_ITS ---
PROCEDURE: SPINE LUMBAR (ROUTINE) 10/02/2024 REASON FOR EXAM: PAIN TECHNIQUE: Multiplanar and multisequence images were obtained without IV contrast administration. COMPARISON: X-ray 09/02/2024 FINDINGS: Vertebrae: No acute fracture. Alignment: Mild dextroscoliosis centered at L3. Conus Medullaris: L1. L1-2: Mild bilobed disc protrusion with minimal spinal stenosis but no neural foraminal stenosis. L2-3: Mild bilobed disc protrusion with minimal spinal stenosis and mild bilateral neural foraminal stenosis. L3-4: Mild left facet hypertrophy and mild ligamentum flavum hypertrophy. Moderate bilobed disc protrusion asymmetric left produces mild spinal stenosis, mild right neural foraminal stenosis and moderate left neural foraminal stenosis with abutment of the left L3 nerve root laterally. L4-5: Moderate bilateral facet hypertrophy and ligamentum flavum hypertrophy. 2 mm of anterolisthesis of L4 on L5 with a moderate bilobed disc protrusion produces moderate spinal stenosis and moderate bilateral neural foraminal stenosis. L5-S1: Mild broad disc protrusion produces mild spinal stenosis and mild bilateral neural foraminal stenosis. Sacrum: Unremarkable. MRI/Spine Lumbar (Routine) IMPRESSION: Mild dextroscoliosis with degenerative disc disease as described above. Reading Location: [id number]
== END | disposition home or self-care (01) ==
LOC: MRI 15:31
PROVIDERS: PCP Internal Medicine; Referring Provider Orthopaedic Surgery Orthopaedic Surgery of the Spine; Visit Provider Orthopaedic Surgery Orthopaedic Surgery of the Spine
DX: M54.16 Radiculopathy, lumbar region (principal)
CPT/HCPCS: 72148

== ENCOUNTER → 2025-02-15 | Outpatient (CLI) | payer MEDICARE, SELFPAY ==
--- NOTE | 2025-02-15 14:30 | BI_ITS ---
EXAM: SCRN MAMM (CAD)W/AVEL BILAT DATE: 02/15/2025 CLINICAL HISTORY: F, Age 79 y/o , SCRN MAMM (CAD)W/AVEL BILAT Sister with breast cancer. Aunt with breast cancer. TECHNIQUE: Procedure Code: [id number] Modality: MG Procedure: SCRN MAMM (CAD)W/AVEL BILAT COMPARISON: Prior exam(s) dated November 14, 2023.. FINDINGS: TISSUE DENSITY: There are scattered areas of fibroglandular density. Bilateral Breast Mammographic Findings: No significant masses, calcifications or other abnormalities are identified. Stable bilateral fat containing axillary lymph nodes. No suspicious masses, areas of developing architectural distortion, or suspicious calcifications. There has been no significant interval change. BI/SCRN MAMM (CAD)W/AVEL BILAT IMPRESSION: Stable bilateral screening mammogram. OVERALL FINAL ASSESSMENT BI-RADS 2: BENIGN RECOMMENDATION: Routine annual follow-up in 1 Year A letter with findings and recommendations will be mailed to the patient. Reading Location: [facility]
--- NOTE | 2025-02-15 14:41 | CDU_ITS ---
Reason For Study Reason For Study: Carotid stenosis Rt. Velocities/BP Lt. Velocities/BP Prox CCA 56.4/9.5 cm/sec. Prox CCA 61.3/9.9 cm/sec. Mid CCA 43.6/8.8 cm/sec. Mid CCA 63.1/9.9 cm/sec. Dist CCA 52.9/11.6 cm/sec. Dist CCA 56.1/9 cm/sec. Prox ICA 40.1/14.4 cm/sec. Prox ICA 32.9/10.6 cm/sec. Mid ICA 46.4/12.8 cm/sec. Mid ICA 40.3/10.7 cm/sec. Dist ICA 49.1/15.1 cm/sec. Dist ICA 34.4/9.7 cm/sec. Rt. ICA/CCA = 1.13. Lt. ICA/CCA = 0.64. Prox ECA 46.5/5.2 cm/sec. Prox ECA 41.3/5.5 cm/sec. Rt. Vert. 36.9/11.6 cm/sec. Lt. Vert. 28.2/9.9 cm/sec. Right Extracranial There is homogeneous, smooth atherosclerotic plaque noted in the right common carotid artery. There is heterogeneous, irregular atherosclerotic plaque noted in the right internal carotid artery. The right internal carotid artery is very tortuous. There is intimal thickening but no significant atherosclerotic plaque noted in the right external carotid artery. Antegrade flow is noted in the right vertebral artery. Left Extracranial There is homogeneous, smooth atherosclerotic plaque noted in the left common carotid artery. There is homogeneous, smooth atherosclerotic plaque noted in the left internal carotid artery. The left internal carotid artery is very tortuous. There is intimal thickening but no significant atherosclerotic plaque noted in the left external carotid artery. Antegrade flow is noted in the left vertebral artery. Procedure This is a Carotid Duplex examination using B-mode, color flow and specral Doppler. Carotid Duplex [id number]. Exam performed in department. VL/Carotid Duplex Ultrasound Interpretation Summary Mild (<50%) stenosis right extracranial internal carotid. Mild (<50%) stenosis left extracranial internal carotid. Patent and antegrade vertebrals bilaterally. Ordering Physician: Na Valente Referring Physician: Na Valente D.O. Performed By: Libertad Fernandez RVT
--- NOTE | 2025-02-15 15:08 | US_ITS ---
PROCEDURE: THYROID 02/15/2025 REASON FOR EXAM: THYROID History of multiple thyroid nodules. Follow-up examination. TECHNIQUE: Procedure Code: USTHY Modality: US Procedure: THYROID COMPARISON: October 29, 2023. FINDINGS: Right thyroid lobe size: 4.5 cm by 1.9 cm 2.1 cm Left thyroid lobe size: 4 cm x 1.8 cm 1.6 cm Isthmus: 0.4 cm Background parenchymal echotexture is homogeneous. Nodules: Stable 1.4 cm 1.1 cm 1.1 cm cyst in the midportion of the right lobe. Stable 1.2 cm 1.3 cm 1 point 1 cm solid nodule. Stable 1.6 cm x 1.7 cm 1.6 cm solid nodule in the upper pole of the left lobe. Stable 4 mm x 4 mm x 3 mm solid nodule in the isthmus. US/Thyroid IMPRESSION: Stable examination. Findings in keeping with a multinodular goiter. RECOMMENDATION: Based on most suspicious nodule. Nodule size = largest diameter Only evaluate nodule if =>5 mm. Growth > 20% in 2 dimensions = worsening. Follow up to 4 nodules. Recommend biopsy for no more than 2 nodules. Reading Location: [facility]
== END | disposition home or self-care (01) ==
LOC: OPBI 14:17
PROVIDERS: PCP Internal Medicine; Referring Provider Internal Medicine; Visit Provider Internal Medicine
DX: Z12.31 Encounter for screening mammogram for malignant neoplasm of breast (principal); E04.2 Nontoxic multinodular goiter; I65.23 Occlusion and stenosis of bilateral carotid arteries
CPT/HCPCS: 76536; 77063; 77067; 93880